=== PATIENT | female | born 1985 | race Caucasian/White ===

== ENCOUNTER 2017-11-08 05:14 | Inpatient (IN) | payer BC ==
[~2017-11-08] VITALS: Ht 154.9 cm; Wt 51.3 kg
[~2017-11-08 05:14] MED LIST: ADERALL PO; AMPH20TA2 PO; CEPH-507 PO; CEPH500C; CITA20TA4; CPR500T PO; FAMO20TA5 PO; HYDR-707 PO; HYOS0.1283 SL; LORAZEPAM PO; OMEP20TA2 PO; ONDA4TAB11 PO; ONDA4TAB8 PO; ONDA8TAB9 PO; OXYC-12; PANT40SU PO; PHENTERAMINE; PNT40TEC PO; PRM25T PO; RNT150T PO; SCR1T1 PO; SPIR1TAB PO; SPIR50TA2 PO; SPIR50TA27; TRAM50TA2 PO
--- OUTSIDE RECORDS SUMMARY | 2017-11-08 05:22 | XMS REPORT | Continuity of Care Document ---
Author Author [facility] Organization [facility] Address Unknown Phone Unavailable Allergies Active Description Code Type Severity Reaction Onset Reported/Identified Relationship to Patient Clinical Status Yes WHOOPING COUGH VACCINE WHOOPING COUGH VACCINE Unknown N/A 10/12/2010 Medications There is no data. Problems Date Dx Coded Attending Type Code Diagnosis Diagnosed By 10/12/2010 Ot 276.8 HYPOPOTASSEMIA 10/12/2010 Ot 305.00 ALCOHOL ABUSE-UNSPEC 10/12/2010 Ot 535.31 ALCOHOLIC GASTRITIS, WITH HEMORRHAGE 10/12/2010 Ot V58.69 OTH MED,LT, CURRENT USE 07/17/2015 COLLEEN LARSON DO Ot 276.8 HYPOPOTASSEMIA 07/17/2015 COLLEEN LARSON DO Ot 574.20 CHOLELITHIASIS NOS 07/17/2015 COLLEEN LARSON DO Ot 787.01 NAUSEA WITH VOMITING 07/17/2015 COLLEEN LARSON DO Ot 787.91 DIARRHEA 07/19/2015 RIVERA SHORT, JOEL Garcia Ot 276.8 07/19/2015 RIVERA SHORT, JOEL T Ot 599.0 07/19/2015 RIVERA SHORT, JOEL T Ot 780.52 07/19/2015 RIVERA SHORT, JOEL T Ot 780.97 07/19/2015 RIVERA SHORT, JOEL T Ot 787.91 07/24/2015 CLOVIS SHORT, DON Waite Ot R10.11 07/24/2015 CLOVIS SHORT, DON Waite Ot R11.2 07/24/2015 CLOVIS SHORT, DON Waite Ot R19.7 08/10/2015 CLOVIS SHORT, DON Waite Ot 783.21 08/10/2015 CLOVIS SHORT, DON Waite Ot 787.01 08/10/2015 CLOVIS SHORT, DON Waite Ot 789.01 03/23/2016 COLLEEN LARSON DO Ot 276.8 HYPOPOTASSEMIA 03/23/2016 COLLEEN LARSON DO Ot 574.20 CHOLELITHIASIS NOS 03/23/2016 COLLEEN LARSON DO Reinier Ot 787.01 NAUSEA WITH VOMITING 03/23/2016 NEO SHULTZ COLLEEN Reinier Ot 787.91 DIARRHEA Procedures There is no data. Results There is no data. Encounters ACCT No. Visit Date/Time Discharge Status Pt. Type Provider Facility Loc./Unit Complaint [id number] 07/24/2015 07:46:00 07/24/2015 11:45:00 DIS Outpatient [facility] [id number] 07/23/2015 05:50:00 07/23/2015 23:59:59 CLS Outpatient DON BRANNON MD [facility] PREOP [id number] 07/20/2015 09:34:00 07/20/2015 23:59:59 CLS Outpatient DON BRANNON MD [facility] CARD [id number] 07/18/2015 19:45:00 07/19/2015 00:31:00 DIS Emergency JOEL STAFFORD MD [facility] ER [id number] 07/16/2015 23:13:00 07/17/2015 02:54:00 DIS Emergency NEO COLLEEN [facility] ER V,D,N [id number] 09/17/2013 15:12:00 09/17/2013 18:36:00 DIS Emergency [id number] 05/10/2013 16:35:00 05/10/2013 18:58:00 DIS Emergency [id number] 10/11/2010 23:54:00 Document Registration
[2017-11-08] MEDS ORDERED: NS IV 1000 ML 1,000 ML IV ONE (05:37)
[2017-11-08] MEDS ORDERED: LACTATED RINGERS 1,000 ML IV ONE ×2 (05:39→09:13)
[2017-11-08] MEDS ORDERED: HYDR25TA4 PO (05:57)
[2017-11-08 06:19] LABS: BASOPHILS % (AUTO) 0 % (0-10); EOSINOPHILS # (AUTO) 0.1 10^3/uL (0.0-0.3); EOSINOPHILS % (AUTO) 2 % (0-10); HEMATOCRIT 38 % (35-52); HEMOGLOBIN 13.4 G/DL (11.5-16.0); LYMPHOCYTES # (AUTO) 2.5 X 10^3 (1.0-4.0); LYMPHOCYTES % (AUTO) 34 % (12-44); MEAN CORPUSCULAR HEMOGLOBIN 33 PG (25-34); MEAN CORPUSCULAR HGB CONC 35 G/DL (32-36); MEAN CORPUSCULAR VOLUME 93 FL (80-99); MEAN PLATELET VOLUME 9.5 FL (7.4-10.4); MONOCYTES # (AUTO) 0.5 X 10^3 (0.0-1.0); MONOCYTES % (AUTO) 7 % (0-12); NEUTROPHILS # (AUTO) 4.2 X 10^3 (1.8-7.8); NEUTROPHILS % (AUTO) 57 % (42-75); PLATELET COUNT 274 10^3/uL (130-400); RED BLOOD COUNT 4.07 10^6/uL (4.35-5.85); RED CELL DISTRIBUTION WIDTH 12.3 % (10.0-14.5); WHITE BLOOD COUNT 7.5 10^3/uL (4.3-11.0)
[2017-11-08 06:21] LABS: CLARITY,URINE CLEAR; COLOR,URINE AMBER; GLUCOSE, URINE (UA) NEGATIVE (NEGATIVE); KETONES,URINE NEGATIVE (NEGATIVE); LEUKOCYTE ESTERASE ,URINE 1+ (NEGATIVE); NITRITE,URINE NEGATIVE (NEGATIVE); PH,URINE 7 (5-9); PROTEIN,URINE 2+ (NEGATIVE); UROBILINOGEN,URINE 1 MG/DL (NORMAL)
[2017-11-08 06:34] LABS: BACTERIA,URINE NEGATIVE /HPF; BILIRUBIN,URINE 1+ (NEGATIVE); RBC,URINE 0-2 /HPF; URIC ACID CRYSTALS,URINE LARGE /LPF; WBC,URINE 0-2 /HPF
[2017-11-08 06:38] LABS: ALANINE AMINOTRANSFERASE 34 U/L (0-55); ALBUMIN 3.6 GM/DL (3.2-4.5); ALKALINE PHOSPHATASE 57 U/L (40-136); BILIRUBIN,TOTAL 0.7 MG/DL (0.1-1.0); BUN/CREATININE RATIO 9; CALCIUM 9.7 MG/DL (8.5-10.1); CARBON DIOXIDE 30 MMOL/L (21-32); CHLORIDE 98 MMOL/L (98-107); CREATININE SERUM 0.68 MG/DL (0.60-1.30); GFR ESTIMATED > 60; GLUCOSE 93 MG/DL (70-105); LIPASE 1100 U/L (8-78); MAGNESIUM 1.3 MG/DL (1.8-2.4); POTASSIUM 3.2 MMOL/L (3.6-5.0); SODIUM 139 MMOL/L (135-145); TOTAL PROTEIN 6.6 GM/DL (6.4-8.2)
--- NOTE | 2017-11-08 07:26 | ED Abdominal Pain ---
General Chief Complaint: Abdominal/GI Problems Stated Complaint: ABD PAIN,STS CHEST PAIN-COUGHING Nursing Triage Note: PT PRESENTS TO ER WITH COMPLAINT OF ABD PAIN. PT STATES THE PAIN STARTS IN HER ABD THEN RADIATES TO HER CHEST, BACK, AND SHOULDER/SHOULDER BLADES. STATES SHE WAS SEEN AT URGENT CARE ON 11/07/17 FOR HER SYMPTOMS. STATES PAIN STARTED THE MORNING OF 11/07/17. Sepsis Screen: No Definite Risk Source of Information: Patient, Old Records Exam Limitations: No Limitations (JOEL STAFFORD MD) History of Present Illness Time Seen By Provider: 05:23 Initial Comments This 32-year-old woman presents to emergency room with pain across the upper abdomen, chest, and shoulders this started about 24 hours ago. She denies any fever. She has chronic diarrhea but denies nausea, vomiting, or constipation. She has had loss of appetite. Her last menstrual period started last week and is lingering on today. She states pain is worse with eating and with sitting up. She has a history of IBS and hypokalemia. Pain in the chest is atypical and not exacerbated by any particular movement, breathing, or activity. (JOEL STAFFORD MD) Allergies and Home Medications Allergies Uncoded Allergies: WHOOPING COUGH VACCINE (Allergy, Unknown, 10/12/10) Home Medications Amphet Asp/Amphet/D-Amphet 20 Mg Tablet, 20 MG PO BID, (Reported) Hydrochlorothiazide 25 Mg Tablet, 25 MG PO, (Reported) Spironolactone 50 Mg Tablet, 50 MG PO DAILY, #30 (Reported) Review of Systems Constitutional: no symptoms reported EENTM: No Symptoms Reported Respiratory: No Symptoms Reported Cardiovascular: No Symptoms Reported Gastrointestinal: See HPI Genitourinary: No Symptoms Reported Musculoskeletal: see HPI Skin: no symptoms reported Psychiatric/Neurological: No Symptoms Reported Endocrine: No Symptoms Reported Hematologic/Lymphatic: No Symptoms Reported (JOEL STAFFORD MD) Past Kcxrwcx-Squpgi-Zrplqx Hx Patient Social History Alcohol Use: Occasionally Uses Recreational Drug Use: No Smoking Status: Current Everyday Smoker Type Used: Cigarettes Recent Foreign Travel: No Contact w/Someone Who Travel: No Recent Infectious Disease Expo: No Recent Hopitalizations: No Physical Abuse: No Sexual Abuse: No (JOEL STAFFORD MD) Alcohol Use: Occasionally Uses (HISTORY OF HEAVY BINGE DRINKING) (COLLEEN COBIAN DO) Immunizations Up To Date Tetanus Booster (TDap): More than 5yrs PED Vaccines UTD: No (JOEL STAFFORD MD) Seasonal Allergies Seasonal Allergies: Yes (JOEL STAFFORD MD) Surgeries History of Surgeries: Yes (INFECTION CUT OUT OF FINGER, EGD, wisdom teeth) (JOEL STAFFORD MD) Respiratory History of Respiratory Disorde: Yes Respiratory Disorders: Pneumonia (JOEL STAFFORD MD) Cardiovascular History of Cardiac Disorders: Yes Cardiac Disorders: Chronic Edema/Swelling (JOEL STAFFORD MD) Neurological History of Neurological Disord: No (JOEL STAFFORD MD) Reproductive System Hx Reproductive Disorders: No (JOEL STAFFORD MD) Gastrointestinal History of Gastrointestinal Di: Yes (GASTRITIS, CHRONIC NAUSEA/VOMITING/ DIARRHEA/ABDOMINAL PAIN) Gastrointestinal Disorders: Chronic Diarrhea, Irritable Bowel (JOEL STAFFORD MD) Musculoskeletal History of Musculoskeletal Dis: No (JOEL STAFFORD MD) Endocrine History of Endocrine Disorders: Yes (recurrent hypokalemia) (JOEL STAFFORD MD) Cancer History of Cancer: No (JOEL STAFFORD MD) Psychosocial History of Psychiatric Problem: Yes Behavioral Health Disorders: ADD/ADHD, Anxiety Suicide Risk Score: 0 (JOEL STAFFORD MD) Integumentary History of Skin or Integumenta: Yes (chronic dry skin) Skin/Integumentary Disorders: Eczema (JOEL STAFFORD MD) Blood Transfusions History of Blood Disorders: No (JOEL STAFFORD MD) Family Medical History Significant Family History: GI Disease (JOEL STAFFORD MD) Physical Exam Vital Signs VS - Last 72 Hours, by Label 11/08/17 11/08/17 05:39 08:25 Temp 99.5 99.5 Pulse 91 Resp 20 B/P (MAP) 114/93 (100) Pulse Ox 100 O2 Delivery Room Air (COLLEEN COBIAN DO) Vital Signs Capillary Refill : Less Than 3 Seconds (JOEL STAFFORD MD) General Appearance: WD/WN, no apparent distress, thin HEENT: PERRL/EOMI, normal ENT inspection, other (oropharynx dry) Neck: normal inspection Respiratory: chest non-tender, lungs clear, normal breath sounds, no respiratory distress, no accessory muscle use Cardiovascular: regular rate, rhythm, no edema, no murmur Gastrointestinal: soft, abnormal bowel sounds (decreased), tenderness (across the upper abdomen, more focused in the epigastrium) Extremities: normal inspection, no pedal edema Back: normal inspection 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, no motor/sensory deficits, alert, oriented x 3, other (tearful, anxious) Skin: normal color, warm/dry (JOEL STAFFORD MD) Progress/Results/Core Measures Results/Orders Lab Results Laboratory Tests Test 11/08/17 05:53 11/08/17 06:10 Range/Units White Blood Count 7.5 4.3-11.0 10^3/uL Red Blood Count 4.07 L 4.35-5.85 10^6/uL Hemoglobin 13.4 11.5-16.0 G/DL Hematocrit 38 35-52 % Mean Corpuscular Volume 93 80-99 FL Mean Corpuscular Hemoglobin 33 25-34 PG Mean Corpuscular Hemoglobin Concent 35 32-36 G/DL Red Cell Distribution Width 12.3 10.0-14.5 % Platelet Count 274 130-400 10^3/uL Mean Platelet Volume 9.5 7.4-10.4 FL Neutrophils (%) (Auto) 57 42-75 % Lymphocytes (%) (Auto) 34 12-44 % Monocytes (%) (Auto) 7 0-12 % Eosinophils (%) (Auto) 2 0-10 % Basophils (%) (Auto) 0 0-10 % Neutrophils # (Auto) 4.2 1.8-7.8 X 10^3 Lymphocytes # (Auto) 2.5 1.0-4.0 X 10^3 Monocytes # (Auto) 0.5 0.0-1.0 X 10^3 Eosinophils # (Auto) 0.1 0.0-0.3 10^3/uL Basophils # (Auto) 0.0 0.0-0.1 10^3/uL Sodium Level 139 135-145 MMOL/L Potassium Level 3.2 L 3.6-5.0 MMOL/L Chloride Level 98 98-107 MMOL/L Carbon Dioxide Level 30 21-32 MMOL/L Anion Gap 11 5-14 MMOL/L Blood Urea Nitrogen 6 L 7-18 MG/DL Creatinine 0.68 0.60-1.30 MG/DL Estimat Glomerular Filtration Rate > 60 BUN/Creatinine Ratio 9 Glucose Level 93 70-105 MG/DL Calcium Level 9.7 8.5-10.1 MG/DL Magnesium Level 1.3 L 1.8-2.4 MG/DL Total Bilirubin 0.7 0.1-1.0 MG/DL Aspartate Amino Transf (AST/SGOT) 45 H 5-34 U/L Alanine Aminotransferase (ALT/SGPT) 34 0-55 U/L Alkaline Phosphatase 57 40-136 U/L Total Protein 6.6 6.4-8.2 GM/DL Albumin 3.6 3.2-4.5 GM/DL Lipase 1100 H 8-78 U/L TSH [place] Testing 1.30 0.35-4.94 UIU/ML Serum Test, Qualitative NEGATIVE NEGATIVE Serum Alcohol < 10 <10 MG/DL Urine Color TINO H Urine Clarity CLEAR Urine pH 7 5-9 Urine Specific [place] 1.020 1.016-1.022 Urine Protein 2+ H NEGATIVE Urine Glucose (UA) NEGATIVE NEGATIVE Urine Ketones NEGATIVE NEGATIVE Urine Nitrite NEGATIVE NEGATIVE Urine Bilirubin 1+ H NEGATIVE Urine Urobilinogen 1 NORMAL MG/DL Urine Leukocyte Esterase 1+ H NEGATIVE Urine RBC (Auto) 1+ H NEGATIVE Urine RBC 0-2 /HPF Urine WBC 0-2 /HPF Urine Squamous Epithelial Cells 2-5 /HPF Urine Crystals PRESENT H /LPF Urine Uric Acid Crystals LARGE H /LPF Urine Bacteria NEGATIVE /HPF Urine Casts NONE /LPF Urine Mucus NEGATIVE /LPF Urine Culture Indicated NO (RENETTA COBIANA Reinier DO) My Orders Orders - RENETTA COBIANA K DO Fentanyl Injection (Sublimaze Injection (11/08/17 08:24) Saline Lock/Iv-Start (11/08/17 09:13) Lactated Ringers (Lr 1000 Ml Iv Solution (11/08/17 09:13) Fentanyl Injection (Sublimaze Injection (11/08/17 09:45) (COLLEEN COBIAN DO) Medications Given in ED Current Medications Medications Dose Ordered Sig/Perez Route Start Time Stop Time Status Last Admin Dose Admin Fentanyl Citrate 50 mcg ONCE ONCE IVP 11/08/17 07:30 11/08/17 07:31 DC 11/08/17 07:32 50 MCG Fentanyl Citrate 50 mcg ONCE ONCE IVP 11/08/17 09:45 11/08/17 09:46 11/08/17 09:42 50 MCG Lactated Ringer's 1,000 ml @ 0 mls/hr Q0M ONCE IV 11/08/17 05:39 11/08/17 05:41 DC 11/08/17 05:49 1,000 MLS/HR Lactated Ringer's 1,000 ml @ 0 mls/hr Q0M ONCE IV 11/08/17 09:13 11/08/17 09:14 DC 11/08/17 09:19 1,000 MLS/HR (COLLEEN COBIAN DO) Vital Signs/I&O Vital Sign - Last 12Hours 11/08/17 11/08/17 05:39 08:25 Temp 99.5 99.5 Pulse 91 Resp 20 B/P (MAP) 114/93 (100) Pulse Ox 100 O2 Delivery Room Air (COLLEEN COBIAN DO) Blood Pressure Mean: 100 Progress Note : Time: 07:24 Progress Note Patient received a liter of lactated Ringer's. Labs revealed mild hypokalemia and elevated lipase. Chest x-ray and abdominal x-ray revealed no acute abnormalities. Workup will be pursued further with gallbladder ultrasound. Pain is being treated with fentanyl. Care of this patient has been turned over to Dr. Cobian at this time. (JOEL STAFFORD MD) Progress Note : Progress Note 0720--ASSUMED CARE FROM DR. STAFFORD, ULTRASOUND PENDING PT HAS HISTORY OF HEAVY ALCOHOL USE/ABUSE, BUT STATES SHE DOES NOT DRINK HEAVY AND ONLY ON RARE OCCASIONS NOW. STATES SHE HAD PART OF A BEER ON Monday11/05/17 (COLLEEN COBIAN DO) Diagnostic Imaging Diagonstic Imaging: Xray Plain Films/CT/US/NM/MRI: chest Comments Chest x-ray viewed by me and report not yet available. No acute abnormalities were appreciated. Diagonstic Imaging: Xray Plain Films/CT/US/NM/MRI: abdomen, pelvis Comments KUB and upright films of the abdomen and pelvis viewed by me. Report not yet available. No acute abnormalities are appreciated. (JOEL STAFFORD MD) Comments GB ULTRASOUND--MINIMAL FLUID AROUND PANCREAS, OTHERWISE NORMAL. PER RADIOLOGIST REPORT @ 0944 Reviewed: Reviewed by Me (COLLEEN COBIAN DO) Departure Communication (Admissions) Progress Notes 0921--SPOKE WITH DR. BRANNON, ACCEPTS PT FOR ADMIT. ORDERS NOTED. (COLLEEN COBIAN DO) Impression Impression: Primary Impression: Pancreatitis Additional Impression: MILD HYPOKALEMIA Disposition: ADMITTED INPATIENT Condition: Stable Admissions Decision to Admit Reason: Admit from ER (General) Decision to Admit/Date: Nov 08, 2017 Time/Decision to Admit Time: 09:50 (COLLEEN COBIAN DO) Departure-Patient Inst. Referrals: DON BRANNON MD (PCP/Family) Primary Care Physician JOEL STAFFORD MD Nov 08, 2017 07:26 COLLEEN COBIAN DO Nov 08, 2017 08:39
[2017-11-08] MEDS ORDERED: fentaNYL INJECTION 100 MCG/2 ML AMP IVP ONE ×2 (07:30→09:45)
[2017-11-08] MEDS ORDERED: fentaNYL INJECTION 100 MCG/2 ML AMP IVP STA ×2 (08:24→09:45)
--- NOTE | 2017-11-08 08:43 | Diagnostic Imaging Report ---
EXAMINATION: Abdomen, flat and upright. INDICATION: Abdominal pain. FINDINGS: There is gas in both the large and small bowel in a nonspecific fashion. This appearance is similar to the CT abdomen/pelvis exam of 07/17/2015. There is no evidence for a bowel obstruction. There is no mass, organomegaly, or pathological calcification evident. There is no sign of a pneumoperitoneum. The osseous structures are intact. IMPRESSION: 1. The bowel gas pattern is nonspecific. There is no acute abnormality identified. 2. Reportedly, a gallbladder ultrasound exam is pending for further evaluation. Dictated by: Dictated on workstation # [id number]
--- NOTE | 2017-11-08 08:43 | Diagnostic Imaging Report ---
EXAMINATION: PA and lateral chest. INDICATION: Chest and abdominal pain There are no prior studies available for comparison. The heart size is within normal limits. The lungs are clear. There is no evidence for pneumonia or for a pleural effusion. There is no sign of failure. There is no pneumothorax identified. The mediastinum is not widened. The osseous structures are intact. IMPRESSION: There is no evidence for an acute cardiopulmonary abnormality. Dictated by: Dictated on workstation # [id number]
--- NOTE | 2017-11-08 09:28 | Diagnostic Imaging Report ---
PROCEDURE: US Gallbladder. TECHNIQUE: Multiple real-time grayscale images were obtained over the right upper quadrant in various projections. INDICATION: Abdominal pain COMPARISON: None FINDINGS: The liver appears unremarkable. There is no biliary dilatation. The common bile duct measures about 3 mm. Doppler imaging demonstrates normal hepatopedal flow in the main portal vein. The gallbladder appears unremarkable. The visualized portions of the pancreas appears unremarkable. There is very minimal trace amount of free fluid seen near the head of the pancreas. The right kidney measures 10.9 cm in length and appears unremarkable. There is no ascites or sonographic Deleon's sign. IMPRESSION: Suspect minimal fluid around the pancreas. This is of uncertain significance and etiology. No additional abnormality is seen. Dictated by: Dictated on workstation # [id number]
[2017-11-08] MEDS ORDERED: PANTOPRAZOLE 40 MG/10 ML (PROTONIX) VIAL IV ONE (10:00)
[2017-11-08] MEDS ORDERED: ONDANSETRON 4 MG/2 ML (SDV) Z0FRAN IV PRN (11:15)
[2017-11-08] MEDS ORDERED: CATHETER FLUSH 10 ML SYR IV PRN ×2 (11:15→13:00)
[2017-11-08] MEDS: morphine INJ 10 MG/ML 1ML (SYR OR VIAL) IV PRN ×5 (11:25→20:39)
[2017-11-08] MEDS ORDERED: D5 1/2 NS W/KCL 20 MEQ/L 1,000 ML IV ONE (11:41)
[2017-11-08 12:00] VITALS: BP 149/94
[2017-11-08] MEDS ORDERED: INFLUENZA TRIvalent 2017-2018 0.5 ML/45 MCG SYR IM ONE (12:00)
[2017-11-08 12:21] LABS: AMPHETAMINE SCREEN, URINE POSITIVE (NEGATIVE); BARBITURATE SCREEN URINE NEGATIVE (NEGATIVE); BENZODIAZEPINES SCREEN URINE NEGATIVE (NEGATIVE); CANNABINOID SCREEN, URINE NEGATIVE (NEGATIVE); COCAINE SCREEN URINE NEGATIVE (NEGATIVE); METHADONE STAT NEGATIVE (NEGATIVE); METHAMPHETAMINE SCREEN URINE S NEGATIVE (NEGATIVE); OPIATE SCREEN URINE NEGATIVE (NEGATIVE); OXYCODONE STAT NEGATIVE (NEGATIVE); PROPOXYPHENE STAT NEGATIVE (NEGATIVE); TRICYCLIC ANTIDEPRESSANTS SCRE NEGATIVE (NEGATIVE)
[2017-11-08] MEDS ORDERED: DEXT30TA12 PO (12:22)
[2017-11-08] MEDS ORDERED: POTA10TA10 PO (12:22)
[2017-11-08] MEDS: D5 1/2 NS W/KCL 20 MEQ/L 1,000 ML IV SCH ×2 (13:28→18:21)
[2017-11-08 15:45] VITALS: BP 125/86
--- NOTE | 2017-11-08 17:28 | History & Physical-Hospitalist ---
HPI History of Present Illness: HPI/Chief Complaint Ms. Goldberg reports yesterday morning after going to the bathroom she coughed several times not particularly hard. With that she noted epigastric abdominal pain. Her pain got progressively worse and aggravated by attempts at eating. She went to work but went home early. She reports a long history of at least several years of only being able to eat small amounts buttock aggravating abdominal pain. She also reports from [place] fat diet and with that she has intermittent diarrhea that she states is oily at times. She has no known past history of pancreatitis or gallstone disease. She has had a past history of binge drinking but over the last year states is only average several beers per week rarely ever drinking more than one at a time. She's had no chills or fever and reports no medication change. Date Seen 11/08/17 Time Seen by Provider: 16:30 Attending Physician Don Brannon MD PCP Don Brannon MD Referring Physician Date of Admission Nov 08, 2017 at 09:50 Home Medications & Allergies Home Medications Reviewed patient Home Medication Reconciliation Form Allergies Allergies Uncoded Allergies WHOOPING COUGH VACCINE ( Allergy, Unknown, 10/12/10) Past Yniaxcr-Cpmrip-Elgyfu Hx Patient Social History Alcohol Use: Occasionally Uses Number of Drinks Today: 0 Alcohol Beverage of Choice: Beer Recreational Drug Use: No Smoking Status: Current Someday Smoker Type Used: Cigarettes Physical Abuse Screen: No Sexual Abuse: No Recent Foreign Travel: No Contact w/other who traveled: No Recent Hopitalizations: No Recent Infectious Disease Expo: No Immunizations Up To Date Tetanus Booster (TDap): More than 5yrs Pediatric: No Seasonal Allergies Seasonal Allergies: Yes Surgeries Yes (INFECTION CUT OUT OF FINGER, EGD, wisdom teeth) Respiratory Yes Currently Using CPAP: No Currently Using BIPAP: No Cardiovascular Yes Chronic Edema/Swelling Neurological No Reproductive System Hx Reproductive Disorders: No Genitourinary No Gastrointestinal Yes (GASTRITIS, CHRONIC NAUSEA/VOMITING/DIARRHEA/ABDOMINAL PAIN) Chronic Diarrhea, Irritable Bowel Musculoskeletal No Endocrine History of Endocrine Disorders: Yes (recurrent hypokalemia) HEENT History of HEENT Disorders: No Cancer No Psychosocial History of Psychiatric Problem: Yes Behavioral Health Disorders: ADD/ADHD, Anxiety Integumentary History of Skin or Integumenta: Yes (chronic dry skin) Skin/Integumentary Disorders: Eczema Blood Transfusions History of Blood Disorders: No Family Medical History Significant Family History: GI Disease Family Hx: Arthritis 19 MOTHER Asthma G8 SISTER Cardiovascular disease 19 FATHER 19 MOTHER Drug abuse G8 SISTER Hypercholesterolemia 19 FATHER 19 MOTHER Hypertension 19 FATHER 19 MOTHER Kidney disease 19 FATHER 19 MOTHER Myocardial infarction 19 MOTHER Neoplasm 19 FATHER (LEUKEMIA) Osteoporosis 19 MOTHER Psychosocial problem G8 SISTER Review of Systems Constitutional: No chills, No diaphoresis, No dizziness, No fever, No malaise, No weakness, No weight gain, No weight loss Respiratory: cough Cardiovascular: chest pain (Sided precordial in nature somewhat pleuritic), No edema, No Hx of Intervention, No palpitations, No syncope, No vascular heart diseas, No other Gastrointestinal: abdominal pain (RUQ), diarrhea, heartburn, nausea, vomiting, other (As for hematemesis melena or hematochezia) Physical Exam Physical Exam Vital Signs Vital Sign - Last 12Hours 11/08/17 05:39 Temp 99.5 Pulse 91 Resp 20 B/P (MAP) 114/93 (100) Pulse Ox 100 O2 Delivery Room Air Capillary Refill : Less Than 3 Seconds General Appearance: Anxious, Mild Distress HEENT: PERRL/EOMI, Normal ENT Inspection, Pharynx Normal Neck: Full Range of Motion, Normal Inspection, Non Tender, Supple, Carotid Bruit Respiratory: Chest Non Tender, Lungs Clear, Normal Breath Sounds, No Accessory Muscle Use, No Respiratory Distress Cardiovascular: Regular Rate, Rhythm, No Edema, No Gallop, No JVD, No Murmur, Normal Peripheral Pulses Gastrointestinal: Normal Bowel Sounds, No Organomegaly, Soft, Guarding, Other ( Significant epigastric right upper and left upper quadrant pain to palpation with guarding) Extremity: Normal Capillary Refill, Normal Inspection, Normal Range of Motion, Non Tender, No Calf Tenderness, No Pedal Edema Neurologic/Psychiatric: Alert, Oriented x3 Skin: Warm/Dry, Pallor Results Results/Procedures Lab Laboratory Tests 11/09/17 05:40 Assessment/Plan Admission Diagnosis 1. This is the patient's first documented attack of pancreatitis with unremarkable abdominal sonogram. Her history suggests the possibility of underlying chronic pancreatitis considering abdominal pain postprandially and history suggesting the possibility of stearrhea. Will need further workup and did recommend as an outpatient GI referral for consideration for further imaging. For now IV fluids bowel rest and parenteral pain medication for pain control. We'll repeat CBC CMP and lipase levels in the morning.'s line 2. History of ADD we'll be holding her generic Adderall. 3. History of fluid retention for which the patient is been on diuretic therapy long-standing. Doubt that her spironolactone her hydrochlorothiazide or contributing to pancreatitis but cannot rule this out for certain. We will be holding these medications as well. Copy Copies To 2: DON BRANNON MD Clinical Quality Measures DVT/VTE Risk/Contraindication: Risk Factor Score Per Nursin RFS Level Per Nursing on Admit: 1=Low/No VTE PPX DON BRANNON MD Nov 08, 2017 17:27
[2017-11-08 19:40] VITALS: BP 111/72
[2017-11-08] MEDS: KETOROLAC 30 MG/ML VIAL IVP PRN (23:41)
[2017-11-09] VITALS: BP 130/87
[2017-11-09] MEDS: D5 1/2 NS W/KCL 20 MEQ/L 1,000 ML IV SCH (01:04)
[2017-11-09 04:00] VITALS: BP 120/85
[2017-11-09] MEDS: morphine INJ 10 MG/ML 1ML (SYR OR VIAL) IV PRN ×3 (04:16→20:42)
[2017-11-09 06:55] LABS: BASOPHILS % (AUTO) 0 % (0-10); EOSINOPHILS # (AUTO) 0.2 10^3/uL (0.0-0.3); EOSINOPHILS % (AUTO) 2 % (0-10); HEMATOCRIT 36 % (35-52); HEMOGLOBIN 12.2 G/DL (11.5-16.0); LYMPHOCYTES # (AUTO) 1.5 X 10^3 (1.0-4.0); LYMPHOCYTES % (AUTO) 18 % (12-44); MEAN CORPUSCULAR HEMOGLOBIN 32 PG (25-34); MEAN CORPUSCULAR HGB CONC 34 G/DL (32-36); MEAN CORPUSCULAR VOLUME 96 FL (80-99); MEAN PLATELET VOLUME 10.3 FL (7.4-10.4); MONOCYTES # (AUTO) 0.5 X 10^3 (0.0-1.0); MONOCYTES % (AUTO) 6 % (0-12); NEUTROPHILS # (AUTO) 6.4 X 10^3 (1.8-7.8); NEUTROPHILS % (AUTO) 74 % (42-75); PLATELET COUNT 226 10^3/uL (130-400); RED BLOOD COUNT 3.76 10^6/uL (4.35-5.85); RED CELL DISTRIBUTION WIDTH 12.4 % (10.0-14.5); WHITE BLOOD COUNT 8.6 10^3/uL (4.3-11.0)
[2017-11-09 07:16] LABS: ALANINE AMINOTRANSFERASE 23 U/L (0-55); ALKALINE PHOSPHATASE 50 U/L (40-136); BILIRUBIN,TOTAL 0.7 MG/DL (0.1-1.0); BUN/CREATININE RATIO 5; CALCIUM 8.4 MG/DL (8.5-10.1); CARBON DIOXIDE 25 MMOL/L (21-32); CHLORIDE 102 MMOL/L (98-107); CREATININE SERUM 0.61 MG/DL (0.60-1.30); GFR ESTIMATED > 60; GLUCOSE 105 MG/DL (70-105); POTASSIUM 3.9 MMOL/L (3.6-5.0); SODIUM 137 MMOL/L (135-145); TOTAL PROTEIN 5.5 GM/DL (6.4-8.2)
[2017-11-09 08:00] VITALS: BP 140/86
[2017-11-09 08:02] LABS: LIPASE 1408 U/L (8-78)
[2017-11-09] MEDS: KETOROLAC 30 MG/ML VIAL IVP PRN (08:03)
--- NOTE | 2017-11-09 08:18 | Progress Note-Hospitalist ---
Subjective HPI/CC On Admission Date Seen by Provider: Nov 09, 2017 Time Seen by Provider: 07:45 Ms. Goldberg reports yesterday morning after going to the bathroom she coughed several times not particularly hard. With that she noted epigastric abdominal pain. Her pain got progressively worse and aggravated by attempts at eating. She went to work but went home early. She reports a long history of at least several years of only being able to eat small amounts buttock aggravating abdominal pain. She also reports from [place] fat diet and with that she has intermittent diarrhea that she states is oily at times. She has no known past history of pancreatitis or gallstone disease. She has had a past history of binge drinking but over the last year states is only average several beers per week rarely ever drinking more than one at a time. She's had no chills or fever and reports no medication change. Subjective/Events-last exam patient reports continued epigastric pain but under better control. She's having some left sided pleuritic chest pain without cough as well. She denies nausea but reports she is not hungry. She denies chills or fever. I was contacted by the nurse last night that she was concerned about respiratory depression and overmedication as the patient was requesting morphine every 2 hours. We initiated ketorolac patient sleeping this morning noting some epigastric pain when I woke her up. She had been able to go for hours without morphine injection that point. Objective Exam Vital Signs Vital Sign - Last 12Hours 11/08/17 05:39 Temp 99.5 Pulse 91 Resp 20 B/P (MAP) 114/93 (100) Pulse Ox 100 O2 Delivery Room Air Capillary Refill : Less Than 3 Seconds General Appearance: WD/WN, Mild Distress Respiratory: Chest Non Tender, Lungs Clear, Normal Breath Sounds, No Accessory Muscle Use, No Respiratory Distress Cardiovascular: Regular Rate, Rhythm, No Edema, No Gallop, No JVD, No Murmur, Normal Peripheral Pulses Gastrointestinal: Normal Bowel Sounds, No Organomegaly, No Pulsatile Mass, Soft , Other (epigastric pain with guarding no rebound noted.) Results/Procedures Lab Assessment/Plan Assessment and Plan Assess & Plan/Chief Complaint 1. Acute pancreatitis some improvement in symptoms. Lipase level pending suspect it will be lower. CBC remains normal and mildly elevated ALTs returning to normal. Will advance to clear liquid diet and DC IV fluids considering low BUN/creatinine ratio. DON BRANNON MD Nov 09, 2017 08:18
[2017-11-09] MEDS: PANTOPRAZOLE 40 MG/10 ML (PROTONIX) VIAL IV SCH (08:34)
[2017-11-09 12:53] VITALS: BP 138/85
[2017-11-09] MEDS: KETOROLAC 30 MG/ML VIAL IVP SCH (15:34)
[2017-11-09 15:45] VITALS: BP 129/81
[2017-11-09 19:55] VITALS: BP 102/71
[2017-11-10] VITALS: BP 110/77
[2017-11-10] MEDS: KETOROLAC 30 MG/ML VIAL IVP SCH ×3 (00:08→16:43)
[2017-11-10] MEDS: morphine INJ 10 MG/ML 1ML (SYR OR VIAL) IV PRN ×3 (03:49→20:32)
[2017-11-10 08:31] VITALS: BP 134/76
[2017-11-10] MEDS ORDERED: NS 100 ML (IVPB) BAG IV ONE (09:15)
[2017-11-10] MEDS: PANTOPRAZOLE 40 MG/10 ML (PROTONIX) VIAL IV SCH (09:15)
[2017-11-10] MEDS ORDERED: IOHEXOL 350 MG/ML 100 ML (OMNIPAQUE 350) VIAL IV ONE (09:15)
--- NOTE | 2017-11-10 12:58 | Diagnostic Imaging Report ---
PROCEDURE: CT abdomen with contrast only. TECHNIQUE: Multiple contiguous axial images were obtained through the abdomen after the administration of intravenous contrast. DATE: 11/10/2017. INDICATION: 32-year-old female, acute pancreatitis. COMPARISON: Right upper quadrant ultrasound 11/08/2017. CT abdomen and pelvis 07/17/2015. FINDINGS: There is a small right and a small left pleural effusion with adjacent homogeneously enhancing consolidation in the dependent aspects of the right and left lower lobes compatible with adjacent compressive atelectasis. The additional visualized portions of the lung bases are clear. The heart is not enlarged. There is no pericardial effusion. There is heterogeneous attenuation of the liver which is geographic in distribution. This most likely is a perfusion related effect. The main, right, and left portal veins are patent. The gallbladder is unremarkable. There is no identified intrahepatic or extrahepatic bile duct dilation. There is obscuration of the normal pancreatic parenchyma with peripancreatic fluid compatible with provided history of acute pancreatitis. There is no evidence of pancreatic necrosis. There is no focal drainable well marginated fluid collection. The spleen is not enlarged. The adrenal glands are unremarkable. Unremarkable appearance of the renal parenchyma. The urinary collecting systems are not distended. There is no identified renal stone. There is a small amount of ascites. There is a retroaortic left renal vein. There are atherosclerotic calcifications. There is no identified abnormally enlarged lymph node in the abdomen, which meets CT size criteria for adenopathy. There is no identified acute bony abnormality. IMPRESSION: 1. Findings compatible with acute pancreatitis. No evidence of pancreatic necrosis or focal well marginated fluid collection. 2. No CT apparent gallstone. No biliary ductal dilation. 3. Geographic areas of heterogeneous attenuation of the liver, which may potentially reflect a perfusion related phenomenon. 4. Small bilateral pleural effusions with adjacent compressive atelectasis. 5. Atherosclerotic calcifications noted. Dictated by: Dictated on workstation # [id number]
--- NOTE | 2017-11-10 14:45 | Progress Note-Hospitalist ---
Standard Progress Note HPI/CC on Admission Ms. Goldberg reports yesterday morning after going to the bathroom she coughed several times not particularly hard. With that she noted epigastric abdominal pain. Her pain got progressively worse and aggravated by attempts at eating. She went to work but went home early. She reports a long history of at least several years of only being able to eat small amounts buttock aggravating abdominal pain. She also reports from [place] fat diet and with that she has intermittent diarrhea that she states is oily at times. She has no known past history of pancreatitis or gallstone disease. She has had a past history of binge drinking but over the last year states is only average several beers per week rarely ever drinking more than one at a time. She's had no chills or fever and reports no medication change. Progress Notes/Assess & Plan Date Seen 11/10/17 Time Seen by Provider: 12:30 Assess & Plan/Chief Complaint 1. Acute pancreatitis some improvement in symptoms. Lipase level pending suspect it will be lower. CBC remains normal and mildly elevated ALTs returning to normal. Will advance to clear liquid diet and DC IV fluids considering low BUN/creatinine ratio. Labs Laboratory Tests 11/09/17 05:40 Short Stay Final Diagnosis Patient was sleeping upon my arrival. It is been 5 or 6 hours since her last morphine injection. If she is still getting ketorolac IV every 8. She reports probably epigastric pain and some left chest wall discomfort without cough chills or fever. She reports feeling slightly hungry this morning and denies nausea. Physical examination reveals a white female who appears to be in less distress than yesterday. Her chest reveals a few fine rales in the left base no wheezes rhonchi or rubs are appreciated. CV reveals a regular rate and rhythm without murmur S3 or S4. Abdomen is soft supple mild distention with epigastric right and left upper quadrant discomfort to palpation with mild guarding although less so than yesterday. No evidence for mass or organomegaly is noted. CT evaluation revealed findings compatible with acute pancreatitis with a small amount of non-localizable ascites. There is no evidence suggest pancreatic necrosis or pseudocyst formation. No biliary tract pathology was is identified. The common duct is not dilated. First episode of acute pancreatitis idiopathic we'll advanced to low fat diet consider discharge over the weekend if progress continues. We'll want to see her back in the office next Monday or and we'll discuss GI referral at that time. In the past patient has had heavier alcohol consumption but for over a year she reports drinking that is well within moderation. For now was advised that she abstain from all alcohol. Today lipase down significantly to the 600 range from 1400 yesterday. We'll repeat an a.m. During ketorolac will check a CMP level as well Labs Laboratory Tests 11/10/17 07:00: Lipase 613H DON BRANNON MD Nov 10, 2017 14:45
[2017-11-10 16:20] VITALS: BP 121/70
[2017-11-10] MEDS: NS IV 1000 ML 1,000 ML IV SCH (22:04)
[2017-11-10 23:50] VITALS: BP 108/59
[2017-11-11] MEDS: KETOROLAC 30 MG/ML VIAL IVP SCH ×3 (00:17→16:14)
[2017-11-11] MEDS: morphine INJ 10 MG/ML 1ML (SYR OR VIAL) IV PRN ×4 (00:51→21:55)
[2017-11-11 05:50] LABS: ALANINE AMINOTRANSFERASE 17 U/L (0-55); ALBUMIN 2.5 GM/DL (3.2-4.5); ALKALINE PHOSPHATASE 74 U/L (40-136); BILIRUBIN,TOTAL 0.4 MG/DL (0.1-1.0); BUN/CREATININE RATIO 13; CALCIUM 8.1 MG/DL (8.5-10.1); CARBON DIOXIDE 24 MMOL/L (21-32); CHLORIDE 105 MMOL/L (98-107); CREATININE SERUM 0.55 MG/DL (0.60-1.30); GFR ESTIMATED > 60; GLUCOSE 105 MG/DL (70-105); LIPASE 392 U/L (8-78); POTASSIUM 3.2 MMOL/L (3.6-5.0); SODIUM 138 MMOL/L (135-145); TOTAL PROTEIN 5.1 GM/DL (6.4-8.2)
[2017-11-11 08:00] VITALS: BP 101/69
[2017-11-11] MEDS: NS IV 1000 ML 1,000 ML IV SCH ×3 (08:04→19:58)
[2017-11-11] MEDS: PANTOPRAZOLE 40 MG/10 ML (PROTONIX) VIAL IV SCH (08:04)
--- NOTE | 2017-11-11 10:24 | Progress Note-Hospitalist ---
Subjective HPI/CC On Admission Date Seen by Provider: Nov 11, 2017 Time Seen by Provider: 09:55 Subjective/Events-last exam Reports doing slightly better than yesterday. Unable to tolerate much food. Had ordered a regular diet yesterday and today and reports it worsens her pain. Did have a BM yesterday that she described as "explosive." Objective Exam Vital Signs Vital Sign - Last 12Hours 11/08/17 05:39 Temp 99.5 Pulse 91 Resp 20 B/P (MAP) 114/93 (100) Pulse Ox 100 O2 Delivery Room Air Capillary Refill : Less Than 3 Seconds General Appearance: No Apparent Distress, WD/WN Respiratory: Lungs Clear, No Accessory Muscle Use, No Respiratory Distress Cardiovascular: Regular Rate, Rhythm, No Murmur Gastrointestinal: Normal Bowel Sounds, Soft, No Distended, No Rebound, Tenderness (mild tenderness diffusely but more exquisite over epigastrium) Neurologic/Psychiatric: Alert, Oriented x3 Results/Procedures Lab Laboratory Tests 11/11/17 05:05 Assessment/Plan Assessment and Plan Assess & Plan/Chief Complaint Pancreatitis Diagnosis/Problems Diagnosis/Problems (1) Pancreatitis Status: Acute Assessment & Plan: CT reveals acute pancreatitis without necrosis or abscess No gallstones noted on CT as well Will continue with IV pain control and antiemetics IV fluids Advised her to go more slowly with diet Qualifiers: Qualified Codes: K85.00 - Idiopathic acute pancreatitis without necrosis or infection (2) Diarrhea Status: Acute Assessment & Plan: penitentiary Continue to monitor Qualifiers: Qualified Codes: R19.7 - Diarrhea, unspecified (3) Hypokalemia Status: Acute Assessment & Plan: Replacement ordered CESAR RENDON MD Nov 11, 2017 10:24 am
[2017-11-11] MEDS: POTASSIUM CL 10MEQ/50ML IVPB 50 ML IV SCH ×2 (11:15→12:11)
[2017-11-11 16:03] VITALS: BP 104/61
[2017-11-11] MEDS ORDERED: ACETAMINOPHEN 500 MG TAB (TYLENOL) PO PRN (20:00)
[2017-11-12] MEDS: KETOROLAC 30 MG/ML VIAL IVP SCH ×3 (00:19→16:31)
[2017-11-12 00:27] VITALS: BP 99/55
[2017-11-12 05:38] LABS: BASOPHILS % (AUTO) 0 % (0-10); EOSINOPHILS # (AUTO) 0.3 10^3/uL (0.0-0.3); EOSINOPHILS % (AUTO) 4 % (0-10); HEMATOCRIT 29 % (35-52); HEMOGLOBIN 9.4 G/DL (11.5-16.0); LYMPHOCYTES % (AUTO) 30 % (12-44); MEAN CORPUSCULAR HEMOGLOBIN 32 PG (25-34); MEAN CORPUSCULAR HGB CONC 33 G/DL (32-36); MEAN CORPUSCULAR VOLUME 97 FL (80-99); MEAN PLATELET VOLUME 9.5 FL (7.4-10.4); MONOCYTES # (AUTO) 0.7 X 10^3 (0.0-1.0); MONOCYTES % (AUTO) 10 % (0-12); NEUTROPHILS # (AUTO) 3.9 X 10^3 (1.8-7.8); NEUTROPHILS % (AUTO) 56 % (42-75); PLATELET COUNT 242 10^3/uL (130-400); RED BLOOD COUNT 2.94 10^6/uL (4.35-5.85); RED CELL DISTRIBUTION WIDTH 12.3 % (10.0-14.5); WHITE BLOOD COUNT 6.9 10^3/uL (4.3-11.0)
[2017-11-12] MEDS: NS IV 1000 ML 1,000 ML IV SCH ×2 (06:04→23:37)
[2017-11-12 06:14] LABS: BUN/CREATININE RATIO 12; CALCIUM 7.8 MG/DL (8.5-10.1); CARBON DIOXIDE 21 MMOL/L (21-32); CHLORIDE 109 MMOL/L (98-107); CREATININE SERUM 0.51 MG/DL (0.60-1.30); GFR ESTIMATED > 60; GLUCOSE 110 MG/DL (70-105); LIPASE 247 U/L (8-78); POTASSIUM 3.2 MMOL/L (3.6-5.0); SODIUM 141 MMOL/L (135-145)
[2017-11-12 08:46] VITALS: BP 111/70
[2017-11-12] MEDS: PANTOPRAZOLE 40 MG/10 ML (PROTONIX) VIAL IV SCH (09:05)
--- NOTE | 2017-11-12 11:00 | Progress Note-Hospitalist ---
Subjective HPI/CC On Admission Date Seen by Provider: Nov 12, 2017 Time Seen by Provider: 10:40 Subjective/Events-last exam Reports feeling the same as yesterday. Was able to eat more though per I/Os. Pain persistent. Objective Exam Vital Signs Vital Sign - Last 12Hours 11/08/17 05:39 Temp 99.5 Pulse 91 Resp 20 B/P (MAP) 114/93 (100) Pulse Ox 100 O2 Delivery Room Air Capillary Refill : Less Than 3 Seconds General Appearance: No Apparent Distress, WD/WN Respiratory: Lungs Clear, No Respiratory Distress Cardiovascular: Regular Rate, Rhythm, No Murmur Gastrointestinal: Normal Bowel Sounds, Soft, No Distended, Tenderness (mild diffuse tenderness) Extremity: Non Tender, No Calf Tenderness Neurologic/Psychiatric: Alert, Oriented x3 Results/Procedures Lab Laboratory Tests 11/12/17 05:17 Assessment/Plan Assessment and Plan Assess & Plan/Chief Complaint Pancreatitis Diagnosis/Problems Diagnosis/Problems (1) Pancreatitis Status: Acute Assessment & Plan: CT reveals acute pancreatitis without necrosis or abscess No gallstones noted on CT as well Will continue with IV pain control and antiemetics Added oral pain meds as well to attempt transition for potential home regimen IV fluids- will DC with increased oral intake today Advised her to go more slowly with diet Qualifiers: Qualified Codes: K85.00 - Idiopathic acute pancreatitis without necrosis or infection (2) Hypokalemia Status: Acute Assessment & Plan: Replacement ordered again Will check mag (3) Normocytic anemia Assessment & Plan: Likely dilutional Will trend Will check iron levels, if low will replace (4) Diarrhea Status: Acute Assessment & Plan: skilled nursing Continue to monitor Qualifiers: Qualified Codes: R19.7 - Diarrhea, unspecified CESAR RENDON MD Nov 12, 2017 11:00
[2017-11-12] MEDS: POTASSIUM CL 10MEQ/50ML IVPB 50 ML IV SCH ×2 (11:43→16:31)
[2017-11-12] MEDS: HYDROcodone/APAP 5 MG/325 MG (LORTAB) TAB PO PRN ×2 (12:23→20:31)
[2017-11-12] MEDS: MAGNESIUM 1 GM/100 ML IVPB 100 ML IV SCH ×4 (12:23→16:31)
[2017-11-12] MEDS ORDERED: hydrOXYzine (ATARAX) 10 MG TAB PO PRN (13:45)
[2017-11-12 16:37] VITALS: BP 131/71
[2017-11-13] VITALS: BP 114/65
[2017-11-13] MEDS: KETOROLAC 30 MG/ML VIAL IVP SCH ×2 (00:26→09:00)
[2017-11-13 01:55] VITALS: BP 118/72
[2017-11-13 06:49] LABS: BASOPHILS % (AUTO) 0 % (0-10); EOSINOPHILS # (AUTO) 0.3 10^3/uL (0.0-0.3); EOSINOPHILS % (AUTO) 3 % (0-10); HEMATOCRIT 30 % (35-52); HEMOGLOBIN 10.2 G/DL (11.5-16.0); LYMPHOCYTES % (AUTO) 24 % (12-44); MEAN CORPUSCULAR HEMOGLOBIN 32 PG (25-34); MEAN CORPUSCULAR HGB CONC 34 G/DL (32-36); MEAN CORPUSCULAR VOLUME 94 FL (80-99); MEAN PLATELET VOLUME 9.8 FL (7.4-10.4); MONOCYTES # (AUTO) 0.6 X 10^3 (0.0-1.0); MONOCYTES % (AUTO) 8 % (0-12); NEUTROPHILS # (AUTO) 5.4 X 10^3 (1.8-7.8); NEUTROPHILS % (AUTO) 65 % (42-75); PLATELET COUNT 351 10^3/uL (130-400); RED BLOOD COUNT 3.21 10^6/uL (4.35-5.85); RED CELL DISTRIBUTION WIDTH 12.1 % (10.0-14.5); WHITE BLOOD COUNT 8.4 10^3/uL (4.3-11.0)
[2017-11-13 07:17] LABS: BUN/CREATININE RATIO 6; CALCIUM 8.4 MG/DL (8.5-10.1); CARBON DIOXIDE 22 MMOL/L (21-32); CHLORIDE 109 MMOL/L (98-107); CREATININE SERUM 0.54 MG/DL (0.60-1.30); GFR ESTIMATED > 60; GLUCOSE 83 MG/DL (70-105); LIPASE 231 U/L (8-78); MAGNESIUM 1.8 MG/DL (1.8-2.4); POTASSIUM 3.1 MMOL/L (3.6-5.0); SODIUM 142 MMOL/L (135-145)
[2017-11-13 07:42] VITALS: BP 117/76
--- NOTE | 2017-11-13 08:20 | Diagnostic Imaging Report ---
INDICATION: Cough PA and lateral views of the chest are obtained. Comparison is made to study of 11/08/2017. There has been development of bilateral parahilar and basilar atelectasis. There is blunting of both costophrenic sulci. There is no evidence of pneumothorax or focal consolidation. IMPRESSION: Developing parahilar atelectasis and small bilateral pleural effusions. Dictated by: Dictated on workstation # [id number]
[2017-11-13] MEDS: PANTOPRAZOLE 40 MG/10 ML (PROTONIX) VIAL IV SCH (10:13)
[2017-11-13] MEDS ORDERED: TRAM50TA2 PO (10:30)
--- NOTE | 2017-11-14 10:36 | Discharge Summary-Hospitalist ---
Diagnosis/Chief Complaint Date of Admission Nov 08, 2017 at 09:50 Date of Discharge Nov 13, 2017 at 10:40 Discharge Date: Nov 13, 2017 Admission Diagnosis 1. This is the patient's first documented attack of pancreatitis with unremarkable abdominal sonogram. Her history suggests the possibility of underlying chronic pancreatitis considering abdominal pain postprandially and history suggesting the possibility of stearrhea. Will need further workup and did recommend as an outpatient GI referral for consideration for further imaging. For now IV fluids bowel rest and parenteral pain medication for pain control. We'll repeat CBC CMP and lipase levels in the morning.'s line 2. History of ADD we'll be holding her generic Adderall. 3. History of fluid retention for which the patient is been on diuretic therapy long-standing. Doubt that her spironolactone her hydrochlorothiazide or contributing to pancreatitis but cannot rule this out for certain. We will be holding these medications as well. Discharge Diagnosis 1. Acute pancreatitis some improvement in symptoms. Lipase level pending suspect it will be lower. CBC remains normal and mildly elevated ALTs returning to normal. Will advance to clear liquid diet and DC IV fluids considering low BUN/creatinine ratio. 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 Goldberg presented to the emergency room with a several day history of severe epigastric right and left upper quadrant abdominal pain with radiation up into the left chest wall. She was noted to have a lipase level in the 1200 range. Abdominal sonography done emergency room was unremarkable. Subsequent CT scanning of the pancreas revealed some mild inflammatory change without evidence for necrosis or pseudocyst formation. She had mild ALt elevation a little over 40 of the remainder of her liver function studies were normal. Calcium levels and CBC were normal as well. She was admitted to the floor on nothing by mouth status with parenteral pain medication being required she had slow improvement in symptoms and by discharge was pain free nearly tolerating a solid diet. Her lipase level was down to the 240 range and liver function tests remain normal. Mild anemia felt to be delusional and related to inflammation was present. Cannot rule out mild iron deficiency although MCV is normal. She does report chronic postprandial abdominal pain and a history suggesting the possibility of steatorrhea from her description. As there is no evidence for gallstone disease and she denies any significant alcohol consumption I will be seeing her back on and we will be scheduling her for GI consultation for consideration for future ERCP. I will be seeing her back in the office this for early follow-up to monitor her progress. Discharge hemoglobin was 10.4. She did have hypomagnesemia and hypokalemia that required IV replacement. Chronic sensations of fluid retention and puffiness of the extremities the patient had been on spironolactone and hydrochlorothiazide for many years. She was advised to discontinue hydrochlorothiazide at the small chance that it could aggravate pancreatitis she can continue when necessary spironolactone. Discharge Home Medications: Active Scripts Active Tramadol HCl 50 Mg Tablet 50 Mg PO Q4H Reported Potassium Chloride 10 Meq Tablet.er 10 Meq PO DAILY Amphetamine Salts 30 mg Tablet (Dextroamphetamine/Amphetamine) 30 Mg Tablet 30 Mg PO BID Spironolactone 50 Mg Tablet 50 Mg PO DAILY Instructions to patient/family Please see electronic discharge instructions given to patient. Clinical Quality Measures DVT/VTE Risk/Contraindication: Risk Factor Score Per Nursin RFS Level Per Nursing on Admit: 1=Low/No VTE PPX Problem Qualifiers (1) Pancreatitis: Chronicity: acute Pancreatitis type: idiopathic Acute pancreatitis complication: no infection or necrosis Qualified Codes: K85.00 - Idiopathic acute pancreatitis without necrosis or infection (2) Diarrhea: Diarrhea type: unspecified type Qualified Codes: R19.7 - Diarrhea, unspecified DON BRANNON MD Nov 14, 2017 10:36
== END 2017-11-13 10:40 | disposition home or self-care (01) | DRG 440 ==
LOC: EDUNIT# 05:14 → ER 05:18 → 4TH 09:50
PROVIDERS: ADMIT Internal Medicine; ATTEND Internal Medicine
DX: K85.00 Idiopathic acute pancreatitis without necrosis or infection (principal); E87.6 Hypokalemia; R19.7 Diarrhea, unspecified; D64.9 Anemia, unspecified; F41.9 Anxiety disorder, unspecified; F90.9 Attention-deficit hyperactivity disorder, unspecified type; L30.9 Dermatitis, unspecified; R60.9 Edema, unspecified; F17.210 Nicotine dependence, cigarettes, uncomplicated
CPT/HCPCS: 36415; 71046; 74019; 74160; 76705; 80048; 80053; 80306; 80320; 81000; 82728; 83540; 83690; 83735; 84443; 84703; 85025; 96361; 96374; 96375; 96376

== ENCOUNTER → 2018-03-13 | Outpatient (CLI) | payer BC ==
[~2018-03-13] MED LIST changes: +DEXT30TA12 PO; +HYDR25TA4 PO; +POTA10TA10 PO
[2018-03-13 11:15] LABS: HEMOGLOBIN 13.5 G/DL (11.5-16.0); MEAN PLATELET VOLUME 9.1 FL (7.4-10.4); RED BLOOD COUNT 4.39 10^6/uL (4.35-5.85); RED CELL DISTRIBUTION WIDTH 16.3 % (10.0-14.5); WHITE BLOOD COUNT 7.6 10^3/uL (4.3-11.0)
[2018-03-13 11:41] LABS: ALANINE AMINOTRANSFERASE 9 U/L (0-55); ALBUMIN 4.4 GM/DL (3.2-4.5); ALKALINE PHOSPHATASE 41 U/L (40-136); BILIRUBIN,TOTAL 0.3 MG/DL (0.1-1.0); BUN/CREATININE RATIO 9; CALCIUM 9.9 MG/DL (8.5-10.1); CARBON DIOXIDE 29 MMOL/L (21-32); CHLORIDE 97 MMOL/L (98-107); CREATININE SERUM 0.74 MG/DL (0.60-1.30); GFR ESTIMATED > 60; GLUCOSE 96 MG/DL (70-105); LIPASE 37 U/L (8-78); POTASSIUM 4.3 MMOL/L (3.6-5.0); SODIUM 137 MMOL/L (135-145); TOTAL PROTEIN 7.5 GM/DL (6.4-8.2)
== END ==
LOC: LAB 10:58
PROVIDERS: ATTEND Internal Medicine
DX: R10.13 Epigastric pain (principal)
CPT/HCPCS: 36415; 80053; 83690; 85027; 86141

== ENCOUNTER 2018-08-19 16:55 | Outpatient (RCR) | payer BC ==
[~2018-08-19 16:55] MED LIST changes: -SPIR50TA2 PO; +SPIR50TA4 PO
== END 2018-11-17 | disposition home or self-care (01) ==
LOC: LAB 16:55 → EDSTATUS 17:01
PROVIDERS: ATTEND Hospitalist
DX: K52.9 Noninfective gastroenteritis and colitis, unspecified (principal)
CPT/HCPCS: 36415; 83520; 87015; 87045; 87046; 87324; 87328; 87329; 87449; 87493; 87899

== ENCOUNTER 2018-11-28 18:08 | Emergency (ER) | payer BC ==
[~2018-11-28] VITALS: Ht 154.9 cm; Wt 46.3 kg
--- OUTSIDE RECORDS SUMMARY | 2018-11-28 18:13 | XMS REPORT | Encounter Summary ---
Author Author [facility] Organization [facility] Address Unknown Phone Unavailable Care Team Providers Care Orientation & Mobility Specialist Name Role Phone Armando Eldridge MD PCP Reason for Visit * Reason Comments Diarrhea Encounter Details Care Team Description Date Type Department Joaquin Ng MD [address] [place] [address] Diarrhea 09/03/2018 Telephone [facility] Level [address] [place] [address] Social History Date Tobacco Use Types Packs/Day Years Used Current Every Day Smoker Smokeless Tobacco: Never Used Alcohol Use Drinks/Week oz/Week Comments Yes Sex Assigned at Date Recorded Not on file Industry Job Start Date Occupation Not on file Not on file Not on file Travel End Travel History Travel Start No recent travel history available. as of this encounter Miscellaneous Notes * Telephone Encounter - Nilsa Jeffers RN - 09/03/2018 10:20 AM HOSPITAL NURSE LIAISON Called and informed the pt that she can go online to [employer] website to get the saving card. ITAL NURSE LIAISON * Telephone Encounter - Joaquin Ng MD - 09/03/2018 10:07 AM HOSPITAL NURSE LIAISON Called patient and explained results of testing to date all of which have been normal. This leaves us with the possibility of small intestinal bacterial overgrowth or irritable bowel syndrome, diarrhea predominant. I advised empiric treatment with rifaximin for 2-week period of time. I went over this medication and she agreed to trying it. If no response, then we will concentrate on treatment of IBS related symptoms. Joaquin Ng MD Gastroenterology Staff ITAL NURSE LIAISON in this encounter Plan of Treatment Not on fileas of this encounter Visit Diagnoses Not on filein this encounter
--- OUTSIDE RECORDS SUMMARY | 2018-11-28 18:13 | XMS REPORT | Encounter Summary ---
Author Author [facility] Organization [facility] Address Unknown Phone Unavailable Care Team Providers Care Assembler [employer] Spider Name Role Phone Armando Eldridge MD PCP Encounter Details Care Team Description Date Type Department Li River MA,CCC-SCRIPT ARTIST Chronic diarrhea 08/31/2018 Orders Only [facility] Level [address] [place] [address] Social History Date Tobacco Use Types Packs/Day Years Used Current Every Day Smoker Smokeless Tobacco: Never Used Alcohol Use Drinks/Week oz/Week Comments Yes Sex Assigned at Date Recorded Not on file Industry Job Start Date Occupation Not on file Not on file Not on file Travel End Travel History Travel Start No recent travel history available. as of this encounter Plan of Treatment Not on fileas of this encounter Procedures Comments Procedure Name Priority Date/Time Associated Diagnosis CALPROTECTIN, STOOL Routine 08/19/2018 Chronic diarrhea PANCREATIC ELASTASE, Routine 08/19/2018 Chronic diarrhea STOOL C DIFFICILE BY PCR Routine 08/19/2018 Chronic diarrhea GIARDIA SCREEN,FECAL Routine 08/19/2018 Chronic diarrhea CULTURE-FECES Routine 08/19/2018 Chronic diarrhea W/SENSITIVITY in this encounter Results * C DIFFICILE BY PCR (08/19/2018) Narrative Performed At Performing Organization Address City/State/Zipcode Phone Number OTHER OUTSIDE LAB * GIARDIA SCREEN,FECAL (08/19/2018) Narrative Performed At Performing Organization Address City/State/Zipcode Phone Number OTHER OUTSIDE LAB * CULTURE-FECES W/SENSITIVITY (08/19/2018) Specimen Stool Narrative Performed At Performing Organization Address City/State/Zipcode Phone Number OTHER OUTSIDE LAB * PANCREATIC ELASTASE, STOOL (08/19/2018) Narrative Performed At Performing Organization Address City/State/Zipcode Phone Number OTHER OUTSIDE LAB * CALPROTECTIN, STOOL (08/19/2018) Calprotectin, Fecal 41 OTHER OUTSIDE LAB Specimen Feces Narrative Performed At Performing Organization Address City/State/Zipcode Phone Number OTHER OUTSIDE LAB in this encounter Visit Diagnoses Diagnosis Chronic diarrhea Diarrhea in this encounter
--- OUTSIDE RECORDS SUMMARY | 2018-11-28 18:13 | XMS REPORT | Encounter Summary ---
Author Author [facility] Organization [facility] Address Unknown Phone Unavailable Care Team Providers Care Ticket Attendant Name Role Phone Armando Eldridge MD PCP Reason for Visit * Reason Comments Medication Question Encounter Details Care Team Description Date Type Department Joaquin Ng MD [address] [place] [address] Medication Question 09/18/2018 Telephone [facility] Level [address] [place] [address] Social History Date Tobacco Use [...] encounter Miscellaneous Notes * Telephone Encounter - Kareen Hanley RN - 09/18/2018 3:56 PM RN URGENT CARE Call from Dr. Nicole Cabral's office, rheumatology; would like to discuss with Dr. Ng starting the pt on Humira for RA and GI sxs. She would also like to discuss pt being cleared of SIBO before starting Humira. Pt is negative for TB. Please call [phone]. Routing [address] Dr. Ng. URGENT CARE in this encounter Plan of Treatment Not on fileas of this encounter Visit Diagnoses Not on filein this encounter
--- OUTSIDE RECORDS SUMMARY | 2018-11-28 18:13 | XMS REPORT | Encounter Summary ---
Author Author [facility] Organization [facility] Address Unknown Phone Unavailable Care Team Providers Care Pouch Maker Name Role Phone Armando Eldridge MD PCP Reason for Visit * Reason Comments Prior Authorization Xifaxan Encounter Details Care Team Description Date Type Department Joaquin Ng MD [address] [place] [address] Prior Authorization (Xifaxan) 09/10/2018 Telephone [facility] Level [address] [place] [address] Social History Date Tobacco Use [...] encounter Miscellaneous Notes * Telephone Encounter - Annabel Finley RN - 09/20/2018 4:43 PM EXERCISE MANAGER Outgoing call to [facility] pharmacy and spoke with pharmacist. Advised of PA approval and Xifaxan script was processed successfully. CISE MANAGER * Telephone Encounter - Li River MA,CCC-KAI WHAKARURUHAU - 09/19/2018 8:51 AM EXERCISE MANAGER PA was approved through [employer]. Li River MA,CCC-KAI WHAKARURUHAU CISE MANAGER * Telephone Encounter - Li River MACCC-KAI WHAKARURUHAU - 09/10/2018 2:50 PM EXERCISE MANAGER PA initiated through [employer] Black Code: [id number]. Awaiting approval or denial. Can take up to 72 hours. If any questions contact . Li River MA,CCC-KAI WHAKARURUHAU CISE MANAGER in this encounter Plan of Treatment Not on fileas of this encounter Visit Diagnoses Not on filein this encounter
--- OUTSIDE RECORDS SUMMARY | 2018-11-28 18:13 | XMS REPORT | Clinical Summary ---
Author Author [facility] Organization [facility] Address Unknown Phone Unavailable Care Team Providers Care Personal Service Workers Name Role Phone Armando Eldridge MD PCP Source Comments Some departments are not documenting in the electronic medical record. If you do not see the information that you expected, contact Release of Information in the Health Information Management department at [phone] for further assistance in locating additional records.[facility] Allergies Comments Active Allergy Reactions Severity Noted Date Per pt. Not moving. Temp. Paralyzed when 3 months ago. Pertussis Vaccines SEE COMMENTS Low 08/06/2018 Medications End Date Status Medication Sig Dispensed Refills Start Date Active dextroamphetamine-ampheta Take 30 mg by 0 mine(+) (ADDERALL) 30 mg mouth twice tablet daily Active spironolactone Take 50 mg by 0 (ALDACTONE) 50 mg tablet mouth twice daily. Take with food. Active potassium citrate(+) Take 10 mEq 0 (UROCIT-K) 10 mEq (1,080 by mouth mg) tablet twice daily. Take with food. Active indapamide (LOZOL) 2.5 mg Take 2.5 mg 0 tablet by mouth daily. Active hydroxychloroquine Take 200 mg 0 (PLAQUENIL) 200 mg tablet by mouth daily. Take with food. Active cyanocobalamin (vitamin Place under 0 B-12) 500 mcg subl tongue daily. Active CYANOCOBALAMIN (VITAMIN Inject to 0 B-12) IJ area(s) as directed every 7 days. Active other medication 1 Dose daily. 0 Metafolate 1000 mg Active loperamide (IMODIUM A-D) Take 2 90 capsule 3 2 mg capsuleIndications: capsules by 8 diarrhea mouth initially, followed by 1 capsule by mouth after each loose stool up to a maximum of 8 tablets in 24 hours. Active rifAXIMin (XIFAXAN) 550 Take one 42 tablet 0 09/03/201 mg tabletIndications: tablet by 8 Diarrhea Predominant mouth three Irritable Colon times daily. Active Problems Problem Noted Date Diarrhea 11/30/2017 Overview: Added automatically from request for surgery [id number] Encounters Care Team Description Date Type Specialty Joaquin Ng MD Medication Question 09/18/2018 Telephone Gastroenterology Joaquin Ng MD Prior Authorization (Xifaxan) 09/10/2018 Telephone Gastroenterology Joaquin Ng MD Diarrhea 09/03/2018 Telephone Gastroenterology [place] MA,[facility] Chronic diarrhea 08/31/2018 Orders Only Gastroenterology from Last 3 Months Family History Medical History Relation Name Comments Kidney Disease Father Heart Disease Mother Relation Name Status Comments Father Mother Social History Date Tobacco Use Types Packs/Day Years Used Current Every Day Smoker Smokeless Tobacco: Never Used Alcohol Use Drinks/Week oz/Week Comments Yes Sex Assigned at Date Recorded Not on file Industry Job Start Date Occupation Not on file Not on file Not on file Travel End Travel History Travel Start No recent travel history available. Last Filed Vital Signs Time Taken Vital Sign Reading 08/06/2018 10:38 AM CDT Blood Pressure 131/89 08/06/2018 10:38 AM CDT Pulse 90 08/06/2018 10:38 AM CDT Temperature 37.1 C (98.7 F) - Respiratory Rate - 06/08/2018 8:55 AM CDT Oxygen Saturation 100% - Inhaled Oxygen - Concentration 08/06/2018 10:38 AM CDT Weight 45.9 kg (101 lb 3.2 oz) 08/06/2018 10:38 AM CDT Height 156.2 cm (5' 1.5") 08/06/2018 10:38 AM CDT Body Mass Index 18.81 Plan of Treatment Health Maintenance Due Date Last Done Comments PHYSICAL (COMPREHENSIVE) 1992 EXAM HIV SCREENING 2000 DTAP/TDAP VACCINES (1 - 2003 Tdap) CERVICAL CANCER SCREENING 2015 INFLUENZA VACCINE 05/23/2018 Results Not on filefrom Last 3 Months Insurance Payer Benefit Subscriber ID Type Phone Address Plan / Group [employer] xxxxxxxxxxxxxxx PPO OUT OF STATE (Home) [place] [address] Advance Directives Patient has advance care planning documents on file. For more information, please contact: [facility] [address] [place] [address]
--- OUTSIDE RECORDS SUMMARY | 2018-11-28 18:14 | XMS REPORT | Continuity of Care Document ---
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 04/08/2012 Ot 535.41 OTHER SPECIFIED GASTRITIS, WITH HEMORRHA 04/08/2012 Ot 938 FOREIGN BODY GI NOS 04/08/2012 Ot E915 FB ENTERING OTH ORIFICE 05/10/2013 MONISHA DARBY MD Ot 276.50 VOLUME DEPLETION, UNSPECIFIED 05/10/2013 MONISHA DARBY MD Ot 276.8 HYPOPOTASSEMIA 05/10/2013 MONISHA DARBY MD Ot 305.1 TOBACCO USE DISORDER 05/10/2013 MONISHA DARBY MD Ot 401.9 HYPERTENSION NOS 05/10/2013 MONISHA DARBY MD Ot 599.0 URIN TRACT INFECTION NOS 05/10/2013 MONISHA DARBY MD Ot 787.03 VOMITING ALONE 09/17/2013 DANO RAMIREZ Ot 276.8 HYPOPOTASSEMIA 09/17/2013 DANO RAMIREZ Ot 599.0 URIN TRACT INFECTION NOS 09/17/2013 DANO RAMIREZ Ot 787.02 NAUSEA ALONE 09/17/2013 DANO RAMIREZ Ot 789.03 ABDOMINAL PAIN, RIGHT LOWER QUADRANT 07/17/2015 NEO DO, COLLEEN K Ot 276.8 HYPOPOTASSEMIA 07/17/2015 NEO DO, COLLEEN K Ot 574.20 CHOLELITHIASIS NOS 07/17/2015 NEO DO, COLLEEN K Ot 787.01 NAUSEA WITH VOMITING 07/17/2015 NEO DO, COLLEEN K Ot 787.91 DIARRHEA 07/19/2015 RIVERA SHORT, JOEL T Ot 276.8 HYPOPOTASSEMIA 07/19/2015 RIVERA SHORT, JOEL T Ot 599.0 URIN TRACT INFECTION NOS 07/19/2015 RIVERA SHORT, JOEL T Ot 780.52 INSOMNIA, UNSPECIFIED 07/19/2015 RIVERA SHORT, JOEL T Ot 780.97 ALTERED MENTAL STATUS 07/19/2015 RIVERA SHORT, JOEL T Ot 787.91 DIARRHEA 07/24/2015 CLOVIS SHORT, DON Waite Ot R10.11 RIGHT UPPER QUADRANT PAIN 07/24/2015 CLOVIS SHORT, DON Waite Ot R11.2 NAUSEA WITH VOMITING, UNSPECIFIED 07/24/2015 CLOVIS SHORT, DON Waite Ot R19.7 DIARRHEA, UNSPECIFIED 08/10/2015 CLOVIS SHORT, DON Waite Ot 783.21 08/10/2015 DON BRANNON MD Ot 787.01 08/10/2015 CLOVIS SHORT, DON Waite Ot 789.01 03/23/2016 NEO DO, COLLEEN K Ot 276.8 HYPOPOTASSEMIA 03/23/2016 NEO DO, COLLEEN K Ot 574.20 CHOLELITHIASIS NOS 03/23/2016 NEO DO, COLLEEN K Ot 787.01 NAUSEA WITH VOMITING 03/23/2016 NEO DO, COLLEEN K Ot 787.91 DIARRHEA 11/08/2017 CLOVIS SHORT, DON Waite Ot 783.21 LOSS OF WEIGHT 11/08/2017 DON BRANNON MD Ot 787.01 NAUSEA WITH VOMITING 11/08/2017 CLOVIS SHORT, DON Waite Ot 789.01 ABDOMINAL PAIN, RIGHT UPPER QUADRANT 11/08/2017 CLOVIS SHORT, DON Waite Ot Z01.818 ENCOUNTER FOR OTHER PREPROCEDURAL EXAMIN 11/10/2017 CLOVIS SHORT, DON Waite Ot E87.6 HYPOKALEMIA 11/10/2017 CLOVIS SHORT, DON Waite Ot F17.210 NICOTINE DEPENDENCE, CIGARETTES, UNCOMPL 11/10/2017 CLOVIS SHORT, DON Waite Ot F41.9 ANXIETY DISORDER, UNSPECIFIED 11/10/2017 CLOVIS SHORT, DON Waite Ot F90.9 ATTENTION-DEFICIT HYPERACTIVITY DISORDER 11/10/2017 CLOVIS SHORT, DON Waite Ot K58.9 IRRITABLE BOWEL SYNDROME WITHOUT DIARRHE 11/10/2017 CLOVIS SHORT, DON Waite Ot K85.90 ACUTE PANCREATITIS WITHOUT NECROSIS OR I 11/10/2017 CLOVIS SHORT, DON Waite Ot L30.9 DERMATITIS, UNSPECIFIED 11/10/2017 CLOVIS SHORT, DON Waite Ot R60.9 EDEMA, UNSPECIFIED 11/13/2017 CLOVIS SHORT, DON Waite Ot D64.9 ANEMIA, UNSPECIFIED 11/13/2017 CLOVIS SHORT, DON Waite Ot E87.6 HYPOKALEMIA 11/13/2017 CLOVIS SHORT, DON Waite Ot F17.210 NICOTINE DEPENDENCE, CIGARETTES, UNCOMPL 11/13/2017 CLOVIS SHORT, DON Waite Ot F41.9 ANXIETY DISORDER, UNSPECIFIED 11/13/2017 CLOVIS SHORT, DON Waite Ot F90.9 ATTENTION-DEFICIT HYPERACTIVITY DISORDER 11/13/2017 CLOVIS SHORT, DON Waite Ot K58.9 IRRITABLE BOWEL SYNDROME WITHOUT DIARRHE 11/13/2017 CLOVIS SHORT, DON Waite Ot K85.00 IDIOPATHIC ACUTE PANCREATITIS WITHOUT NE 11/13/2017 CLOVIS SHORT, DON Waite Ot K85.90 ACUTE PANCREATITIS WITHOUT NECROSIS OR I 11/13/2017 CLOVIS SHORT, DON Waite Ot L30.9 DERMATITIS, UNSPECIFIED 11/13/2017 CLOVIS SHORT, DON Waite Ot R19.7 DIARRHEA, UNSPECIFIED 11/13/2017 CLOVIS SHORT, DON Waite Ot R60.9 EDEMA, UNSPECIFIED 03/26/2018 CLOVIS SHORT, DON Waite Ot R10.13 EPIGASTRIC PAIN 08/22/2018 LISBETH SHORT, RAFAEL Ramírez Ot K52.9 NONINFECTIVE GASTROENTERITIS AND COLITIS 11/17/2018 LISBETH SHORT, RAFAEL Ramírez Ot K52.9 NONINFECTIVE GASTROENTERITIS AND COLITIS 11/20/2018 LISBETH SHORT, RAFAEL Ramírez Ot K52.9 NONINFECTIVE GASTROENTERITIS AND COLITIS Procedures Code Description Performed By Performed On 45.13 OTHER ENDOSCOPY OF INTEST 04/07/2012 Results Test Result Range Complete blood count (CBC) with automated white blood cell (WBC) differential - 11/08/17 05:53 Blood leukocytes automated count (number/volume) 7.5 10*3/uL 4.3-11.0 Blood erythrocytes automated count (number/volume) 4.07 10*6/uL 4.35-5.85 Venous blood hemoglobin measurement (mass/volume) 13.4 g/dL 11.5-16.0 Blood hematocrit (volume fraction) 38 % 35-52 Automated erythrocyte mean corpuscular volume 93 [foz_us] 80-99 Automated erythrocyte mean corpuscular hemoglobin (mass per erythrocyte) 33 pg 25-34 Automated erythrocyte mean corpuscular hemoglobin concentration measurement ( mass/volume) 35 g/dL 32-36 Automated erythrocyte distribution width ratio 12.3 % 10.0-14.5 Automated blood platelet count (count/volume) 274 10*3/uL 130-400 Automated blood platelet mean volume measurement 9.5 [foz_us] 7.4-10.4 Automated blood neutrophils/100 leukocytes 57 % 42-75 Automated blood lymphocytes/100 leukocytes 34 % 12-44 Blood monocytes/100 leukocytes 7 % 0-12 Automated blood eosinophils/100 leukocytes 2 % 0-10 Automated blood basophils/100 leukocytes 0 % 0-10 Blood neutrophils automated count (number/volume) 4.2 10*3 1.8-7.8 Blood lymphocytes automated count (number/volume) 2.5 10*3 1.0-4.0 Blood monocytes automated count (number/volume) 0.5 10*3 0.0-1.0 Automated eosinophil count 0.1 10*3/uL 0.0-0.3 Automated blood basophil count (count/volume) 0.0 10*3/uL 0.0-0.1 Serum or plasma choriogonadotropin ( test) detection - 11/08/17 05:53 Serum or plasma choriogonadotropin ( test) detection NEGATIVE NEGATIVE Comprehensive metabolic panel - 11/08/17 05:53 Serum or plasma sodium measurement (moles/volume) 139 mmol/L 135-145 Serum or plasma potassium measurement (moles/volume) 3.2 mmol/L 3.6-5.0 Serum or plasma chloride measurement (moles/volume) 98 mmol/L 98-107 Carbon dioxide 30 mmol/L 21-32 Serum or plasma anion gap determination (moles/volume) 11 mmol/L 5-14 Serum or plasma urea nitrogen measurement (mass/volume) 6 mg/dL 7-18 Serum or plasma creatinine measurement (mass/volume) 0.68 mg/dL 0.60-1.30 Serum or plasma urea nitrogen/creatinine mass ratio 9 NRG Serum or plasma creatinine measurement with calculation of estimated glomerular filtration rate > NRG Serum or plasma glucose measurement (mass/volume) 93 mg/dL 70-105 Serum or plasma calcium measurement (mass/volume) 9.7 mg/dL 8.5-10.1 Serum or plasma total bilirubin measurement (mass/volume) 0.7 mg/dL 0.1-1.0 Serum or plasma alkaline phosphatase measurement (enzymatic activity/volume) 57 U/L 40-136 Serum or plasma aspartate aminotransferase measurement (enzymatic activity/ volume) 45 U/L 5-34 Serum or plasma alanine aminotransferase measurement (enzymatic activity/volume ) 34 U/L 0-55 Serum or plasma protein measurement (mass/volume) 6.6 g/dL 6.4-8.2 Serum or plasma albumin measurement (mass/volume) 3.6 g/dL 3.2-4.5 Magnesium - 11/08/17 05:53 Magnesium 1.3 mg/dL 1.8-2.4 Lipase - 11/08/17 05:53 Lipase 1100 U/L 8-78 Serum or plasma thyrotropin measurement by detection limit <=0.05 miu/l (units/ volume) - 11/08/17 05:53 Serum or plasma thyrotropin measurement by detection limit <=0.05 miu/l (units/ volume) 1.30 u[iU]/mL 0.35-4.94 Serum or plasma ethanol measurement (mass/volume) - 11/08/17 05:53 Serum or plasma ethanol measurement (mass/volume) < mg/dL <10 Complete urinalysis with reflex to culture - 11/08/17 06:10 Urine color determination TINO NRG Urine clarity determination CLEAR NRG Urine pH measurement by test strip 7 5-9 Specific gravity of urine by test strip 1.020 1.016- 1.022 Urine protein assay by test strip, semi-quantitative 2+ NEGATIVE Urine glucose detection by automated test strip NEGATIVE NEGATIVE Erythrocytes detection in urine sediment by light microscopy 1+ NEGATIVE Urine ketones detection by automated test strip NEGATIVE NEGATIVE Urine nitrite detection by test strip NEGATIVE NEGATIVE Urine total bilirubin detection by test strip 1+ NEGATIVE Urine urobilinogen measurement by automated test strip (mass/volume) 1 mg/dL NORMAL Urine leukocyte esterase detection by dipstick 1+ NEGATIVE Automated urine sediment erythrocyte count by microscopy (number/high power field) [HPF] NRG Automated urine sediment leukocyte count by microscopy (number/high power field ) [HPF] NRG Bacteria detection in urine sediment by light microscopy NEGATIVE NRG Squamous epithelial cells detection in urine sediment by light microscopy 2-5 NRG Crystals detection in urine sediment by light microscopy PRESENT NRG Casts detection in urine sediment by light microscopy NONE NRG Mucus detection in urine sediment by light microscopy NEGATIVE NRG Complete urinalysis with reflex to culture NO NRG Uric acid crystals detection in urine sediment by light microscopy LARGE NRG Urine drug screening test - 11/08/17 11:40 Urine phencyclidine detection by screening method NEGATIVE NEGATIVE Urine benzodiazepines detection by screening method NEGATIVE NEGATIVE Urine cocaine detection NEGATIVE NEGATIVE Urine amphetamines detection by screening method POSITIVE NEGATIVE Urine methamphetamine detection by screening method NEGATIVE NEGATIVE Urine cannabinoids detection by screening method NEGATIVE NEGATIVE Urine opiates detection by screening method NEGATIVE NEGATIVE Urine barbiturates detection NEGATIVE NEGATIVE Screening urine tricyclic antidepressants detection NEGATIVE NEGATIVE Urine methadone detection by screening method NEGATIVE NEGATIVE Urine oxycodone detection NEGATIVE NEGATIVE Urine propoxyphene detection NEGATIVE NEGATIVE Complete blood count (CBC) with automated white blood cell (WBC) differential - 11/09/17 05:40 Blood leukocytes automated count (number/volume) 8.6 10*3/uL 4.3-11.0 Blood erythrocytes automated count (number/volume) 3.76 10*6/uL 4.35-5.85 Venous blood hemoglobin measurement (mass/volume) 12.2 g/dL 11.5-16.0 Blood hematocrit (volume fraction) 36 % 35-52 Automated erythrocyte mean corpuscular volume 96 [foz_us] 80-99 Automated erythrocyte mean corpuscular hemoglobin (mass per erythrocyte) 32 pg 25-34 Automated erythrocyte mean corpuscular hemoglobin concentration measurement ( mass/volume) 34 g/dL 32-36 Automated erythrocyte distribution width ratio 12.4 % 10.0-14.5 Automated blood platelet count (count/volume) 226 10*3/uL 130-400 Automated blood platelet mean volume measurement 10.3 [foz_us] 7.4-10.4 Automated blood neutrophils/100 leukocytes 74 % 42-75 Automated blood lymphocytes/100 leukocytes 18 % 12-44 Blood monocytes/100 leukocytes 6 % 0-12 Automated blood eosinophils/100 leukocytes 2 % 0-10 Automated blood basophils/100 leukocytes 0 % 0-10 Blood neutrophils automated count (number/volume) 6.4 10*3 1.8-7.8 Blood lymphocytes automated count (number/volume) 1.5 10*3 1.0-4.0 Blood monocytes automated count (number/volume) 0.5 10*3 0.0-1.0 Automated eosinophil count 0.2 10*3/uL 0.0-0.3 Automated blood basophil count (count/volume) 0.0 10*3/uL 0.0-0.1 Comprehensive metabolic panel - 11/09/17 05:40 Serum or plasma sodium measurement (moles/volume) 137 mmol/L 135-145 Serum or plasma potassium measurement (moles/volume) 3.9 mmol/L 3.6-5.0 Serum or plasma chloride measurement (moles/volume) 102 mmol/L 98-107 Carbon dioxide 25 mmol/L 21-32 Serum or plasma anion gap determination (moles/volume) 10 mmol/L 5-14 Serum or plasma urea nitrogen measurement (mass/volume) 3 mg/dL 7-18 Serum or plasma creatinine measurement (mass/volume) 0.61 mg/dL 0.60-1.30 Serum or plasma urea nitrogen/creatinine mass ratio 5 NRG Serum or plasma creatinine measurement with calculation of estimated glomerular filtration rate > NRG Serum or plasma glucose measurement (mass/volume) 105 mg/dL 70-105 Serum or plasma calcium measurement (mass/volume) 8.4 mg/dL 8.5-10.1 Serum or plasma total bilirubin measurement (mass/volume) 0.7 mg/dL 0.1-1.0 Serum or plasma alkaline phosphatase measurement (enzymatic activity/volume) 50 U/L 40-136 Serum or plasma aspartate aminotransferase measurement (enzymatic activity/ volume) 30 U/L 5-34 Serum or plasma alanine aminotransferase measurement (enzymatic activity/volume ) 23 U/L 0-55 Serum or plasma protein measurement (mass/volume) 5.5 g/dL 6.4-8.2 Serum or plasma albumin measurement (mass/volume) 3.0 g/dL 3.2-4.5 Lipase - 11/09/17 05:40 Lipase 1408 U/L Lipase - 11/10/17 07:00 Lipase 613 U/L Comprehensive metabolic panel - 11/11/17 05:05 Serum or plasma sodium measurement (moles/volume) 138 mmol/L 135-145 Serum or plasma potassium measurement (moles/volume) 3.2 mmol/L 3.6-5.0 Serum or plasma chloride measurement (moles/volume) 105 mmol/L 98-107 Carbon dioxide 24 mmol/L 21-32 Serum or plasma anion gap determination (moles/volume) 9 mmol/L 5-14 Serum or plasma urea nitrogen measurement (mass/volume) 7 mg/dL 7-18 Serum or plasma creatinine measurement (mass/volume) 0.55 mg/dL 0.60-1.30 Serum or plasma urea nitrogen/creatinine mass ratio 13 NRG Serum or plasma creatinine measurement with calculation of estimated glomerular filtration rate > NRG Serum or plasma glucose measurement (mass/volume) 105 mg/dL 70-105 Serum or plasma calcium measurement (mass/volume) 8.1 mg/dL 8.5-10.1 Serum or plasma total bilirubin measurement (mass/volume) 0.4 mg/dL 0.1-1.0 Serum or plasma alkaline phosphatase measurement (enzymatic activity/volume) 74 U/L 40-136 Serum or plasma aspartate aminotransferase measurement (enzymatic activity/ volume) 29 U/L 5-34 Serum or plasma alanine aminotransferase measurement (enzymatic activity/volume ) 17 U/L 0-55 Serum or plasma protein measurement (mass/volume) 5.1 g/dL 6.4-8.2 Serum or plasma albumin measurement (mass/volume) 2.5 g/dL 3.2-4.5 Lipase - 11/11/17 05:05 Lipase 392 U/L Serum iron and total iron binding capacity panel - 11/12/17 05:13 Serum or plasma iron measurement (mass/volume) 13 % 35- 180 Total iron binding capacity and transferrin saturation measurement 6 % 15-50 Iron binding capacity [mass/volume] in serum or plasma 215 % 280-380 UIBC (unsaturated iron binding capacity) 202 % 55-450 Serum or plasma ferritin measurement (mass/volume) 86.5 % 15.0-150.0 Complete blood count (CBC) with automated white blood cell (WBC) differential - 11/12/17 05:17 Blood leukocytes automated count (number/volume) 6.9 10*3/uL 4.3-11.0 Blood erythrocytes automated count (number/volume) 2.94 10*6/uL 4.35-5.85 Venous blood hemoglobin measurement (mass/volume) 9.4 g/dL 11.5-16.0 Blood hematocrit (volume fraction) 29 % 35-52 Automated erythrocyte mean corpuscular volume 97 [foz_us] 80-99 Automated erythrocyte mean corpuscular hemoglobin (mass per erythrocyte) 32 pg 25-34 Automated erythrocyte mean corpuscular hemoglobin concentration measurement ( mass/volume) 33 g/dL 32-36 Automated erythrocyte distribution width ratio 12.3 % 10.0-14.5 Automated blood platelet count (count/volume) 242 10*3/uL 130-400 Automated blood platelet mean volume measurement 9.5 [foz_us] 7.4-10.4 Automated blood neutrophils/100 leukocytes 56 % 42-75 Automated blood lymphocytes/100 leukocytes 30 % 12-44 Blood monocytes/100 leukocytes 10 % 0-12 Automated blood eosinophils/100 leukocytes 4 % 0-10 Automated blood basophils/100 leukocytes 0 % 0-10 Blood neutrophils automated count (number/volume) 3.9 10*3 1.8-7.8 Blood lymphocytes automated count (number/volume) 2.0 10*3 1.0-4.0 Blood monocytes automated count (number/volume) 0.7 10*3 0.0-1.0 Automated eosinophil count 0.3 10*3/uL 0.0-0.3 Automated blood basophil count (count/volume) 0.0 10*3/uL 0.0-0.1 Whole blood basic metabolic panel - 11/12/17 05:17 Serum or plasma sodium measurement (moles/volume) 141 mmol/L 135-145 Serum or plasma potassium measurement (moles/volume) 3.2 mmol/L 3.6-5.0 Serum or plasma chloride measurement (moles/volume) 109 mmol/L 98-107 Carbon dioxide 21 mmol/L 21-32 Serum or plasma anion gap determination (moles/volume) 11 mmol/L 5-14 Serum or plasma urea nitrogen measurement (mass/volume) 6 mg/dL 7-18 Serum or plasma creatinine measurement (mass/volume) 0.51 mg/dL 0.60-1.30 Serum or plasma urea nitrogen/creatinine mass ratio 12 NRG Serum or plasma creatinine measurement with calculation of estimated glomerular filtration rate > NRG Serum or plasma glucose measurement (mass/volume) 110 mg/dL 70-105 Serum or plasma calcium measurement (mass/volume) 7.8 mg/dL 8.5-10.1 Lipase - 11/12/17 05:17 Lipase 247 U/L 8-78 Magnesium - 11/12/17 05:17 Magnesium 0.9 mg/dL 1.8-2.4 Magnesium - 11/12/17 19:25 Magnesium 2.1 mg/dL 1.8-2.4 Complete blood count (CBC) with automated white blood cell (WBC) differential - 11/13/17 05:21 Blood leukocytes automated count (number/volume) 8.4 10*3/uL 4.3-11.0 Blood erythrocytes automated count (number/volume) 3.21 10*6/uL 4.35-5.85 Venous blood hemoglobin measurement (mass/volume) 10.2 g/dL 11.5-16.0 Blood hematocrit (volume fraction) 30 % 35-52 Automated erythrocyte mean corpuscular volume 94 [foz_us] 80-99 Automated erythrocyte mean corpuscular hemoglobin (mass per erythrocyte) 32 pg 25-34 Automated erythrocyte mean corpuscular hemoglobin concentration measurement ( mass/volume) 34 g/dL 32-36 Automated erythrocyte distribution width ratio 12.1 % 10.0-14.5 Automated blood platelet count (count/volume) 351 10*3/uL 130-400 Automated blood platelet mean volume measurement 9.8 [foz_us] 7.4-10.4 Automated blood neutrophils/100 leukocytes 65 % 42-75 Automated blood lymphocytes/100 leukocytes 24 % 12-44 Blood monocytes/100 leukocytes 8 % 0-12 Automated blood eosinophils/100 leukocytes 3 % 0-10 Automated blood basophils/100 leukocytes 0 % 0-10 Blood neutrophils automated count (number/volume) 5.4 10*3 1.8-7.8 Blood lymphocytes automated count (number/volume) 2.0 10*3 1.0-4.0 Blood monocytes automated count (number/volume) 0.6 10*3 0.0-1.0 Automated eosinophil count 0.3 10*3/uL 0.0-0.3 Automated blood basophil count (count/volume) 0.0 10*3/uL 0.0-0.1 Whole blood basic metabolic panel - 11/13/17 05:21 Serum or plasma sodium measurement (moles/volume) 142 mmol/L 135-145 Serum or plasma potassium measurement (moles/volume) 3.1 mmol/L 3.6-5.0 Serum or plasma chloride measurement (moles/volume) 109 mmol/L 98-107 Carbon dioxide 22 mmol/L 21-32 Serum or plasma anion gap determination (moles/volume) 11 mmol/L 5-14 Serum or plasma urea nitrogen measurement (mass/volume) 3 mg/dL 7-18 Serum or plasma creatinine measurement (mass/volume) 0.54 mg/dL 0.60-1.30 Serum or plasma urea nitrogen/creatinine mass ratio 6 NRG Serum or plasma creatinine measurement with calculation of estimated glomerular filtration rate > NRG Serum or plasma glucose measurement (mass/volume) 83 mg/dL 70-105 Serum or plasma calcium measurement (mass/volume) 8.4 mg/dL 8.5-10.1 Magnesium - 11/13/17 05:21 Magnesium 1.8 mg/dL 1.8-2.4 Lipase - 11/13/17 05:21 Lipase 231 U/L 8-78 Automated blood complete blood count (hemogram) panel - 03/13/18 11:10 Blood leukocytes automated count (number/volume) 7.6 10*3/uL 4.3-11.0 Blood erythrocytes automated count (number/volume) 4.39 10*6/uL 4.35-5.85 Venous blood hemoglobin measurement (mass/volume) 13.5 g/dL 11.5-16.0 Blood hematocrit (volume fraction) 39 % 35-52 Automated erythrocyte mean corpuscular volume 88 [foz_us] 80-99 Automated erythrocyte mean corpuscular hemoglobin (mass per erythrocyte) 31 pg 25-34 Automated erythrocyte mean corpuscular hemoglobin concentration measurement ( mass/volume) 35 g/dL 32-36 Automated erythrocyte distribution width ratio 16.3 % 10.0-14.5 Automated blood platelet count (count/volume) 321 10*3/uL 130-400 Automated blood platelet mean volume measurement 9.1 [foz_us] 7.4-10.4 Comprehensive metabolic panel - 03/13/18 11:10 Serum or plasma sodium measurement (moles/volume) 137 mmol/L 135-145 Serum or plasma potassium measurement (moles/volume) 4.3 mmol/L 3.6-5.0 Serum or plasma chloride measurement (moles/volume) 97 mmol/L 98-107 Carbon dioxide 29 mmol/L 21-32 Serum or plasma anion gap determination (moles/volume) 11 mmol/L 5-14 Serum or plasma urea nitrogen measurement (mass/volume) 7 mg/dL 7-18 Serum or plasma creatinine measurement (mass/volume) 0.74 mg/dL 0.60-1.30 Serum or plasma urea nitrogen/creatinine mass ratio 9 NRG Serum or plasma creatinine measurement with calculation of estimated glomerular filtration rate > NRG Serum or plasma glucose measurement (mass/volume) 96 mg/dL 70-105 Serum or plasma calcium measurement (mass/volume) 9.9 mg/dL 8.5-10.1 Serum or plasma total bilirubin measurement (mass/volume) 0.3 mg/dL 0.1-1.0 Serum or plasma alkaline phosphatase measurement (enzymatic activity/volume) 41 U/L 40-136 Serum or plasma aspartate aminotransferase measurement (enzymatic activity/ volume) 21 U/L 5-34 Serum or plasma alanine aminotransferase measurement (enzymatic activity/volume ) 9 U/L 0-55 Serum or plasma protein measurement (mass/volume) 7.5 g/dL 6.4-8.2 Serum or plasma albumin measurement (mass/volume) 4.4 g/dL 3.2-4.5 Lipase - 03/13/18 11:10 Lipase 37 U/L 8-78 Serum or plasma C reactive protein measurement (mass/volume) - 03/13/18 11:10 Serum or plasma C reactive protein measurement (mass/volume) 0.07 mg /dL 0.00-0.50 Serum ragweed IgE antibody assay - 08/19/18 17:28 Serum ragweed IgE antibody assay Negative NRG Stool bacteria identification by culture - 08/19/18 17:28 Stool bacteria identification by culture N2 NR [id number] - 08/19/18 17:28 [id number] SEE REPORT NRG QUANTITY OF GROWTH . NRG CALPROTECTIN FECAL - 08/19/18 17:28 CALPROT STL 41 % 0-49 Stool electrolyte panel - 08/19/18 17:28 Stool sodium measurement (moles/mass) TNP () Stool potassium measurement TNP () Stool chloride measurement TNP () PANCREATIC ELASTASE FECAL - 08/19/18 17:28 STOOL ELAST >500 >=201 Encounters ACCT No. Visit Date/Time Discharge Status Pt. Type Provider Facility Loc./Unit Complaint [id number] 11/18/2018 00:09:00 11/18/2018 23:59:59 CLS Preadmit RAFAEL BOB MD [facility] K52.9 [id number] 08/19/2018 16:55:00 11/17/2018 00:01:00 DIS Outpatient RAFAEL BOB MD [facility] K52.9 [id number] 03/13/2018 10:58:00 03/13/2018 23:59:59 CLS Outpatient DON BRANNON MD [facility] EPIGASTRIC ABD PAIN [id number] 11/08/2017 09:50:00 11/13/2017 10:40:00 DIS Inpatient DON BRANNON MD [facility] 4TH PANCREATITIS;MILD HYPOKALEMIA [id number] 07/24/2015 07:46:00 07/24/2015 11:45:00 DIS Outpatient DON BRANNON MD [facility] SDC ABD PAIN [id number] 07/23/2015 05:50:00 07/23/2015 23:59:59 CLS Outpatient DON BRANNON MD [facility] PREOP ABD PAIN [id number] 07/20/2015 09:34:00 07/20/2015 23:59:59 CLS Outpatient DON BRANNON MD [facility] CARD NAUSEA VOMITING RIGHT UPPER QUADRANT ABDOMINAL [place]REE [id number] 07/18/2015 19:45:00 07/19/2015 00:31:00 DIS Emergency RIVERA SHORT, JOEL Garcia [facility] ER AMS;HEART PALPITATIONS ;LOW POTASSIUM [id number] 07/16/2015 23:13:00 07/17/2015 02:54:00 DIS Emergency COLLEEN LARSON DO [facility] ER V,D,N [id number] 09/17/2013 15:12:00 09/17/2013 18:36:00 DIS Emergency MCKENZIE HADLEY, DANO Pritchett [facility] ER ABD PAIN [id number] 05/10/2013 16:35:00 05/10/2013 18:58:00 DIS Emergency MONISHA DARBY MD [facility] POSS DEHYDRATION [id number] 04/06/2012 14:53:00 Document Registration [id number] 10/11/2010 23:54:00 Document Registration
[2018-11-28 18:38] LABS: BILIRUBIN,URINE NEGATIVE (NEGATIVE); CLARITY,URINE CLEAR; COLOR,URINE YELLOW; GLUCOSE, URINE (UA) NEGATIVE (NEGATIVE); KETONES,URINE 2+ (NEGATIVE); LEUKOCYTE ESTERASE ,URINE 1+ (NEGATIVE); NITRITE,URINE NEGATIVE (NEGATIVE); PH,URINE 6 (5-9); PROTEIN,URINE 2+ (NEGATIVE); UROBILINOGEN,URINE 1 MG/DL (NORMAL)
[2018-11-28 18:39] LABS: BASOPHILS # (AUTO) 0.1 10^3/uL (0.0-0.1); BASOPHILS % (AUTO) 1 % (0-10); EOSINOPHILS # (AUTO) 0.1 10^3/uL (0.0-0.3); EOSINOPHILS % (AUTO) 1 % (0-10); HEMATOCRIT 41 % (35-52); HEMOGLOBIN 14.3 G/DL (11.5-16.0); LYMPHOCYTES # (AUTO) 4.3 X 10^3 (1.0-4.0); LYMPHOCYTES % (AUTO) 43 % (12-44); MEAN CORPUSCULAR HEMOGLOBIN 30 PG (25-34); MEAN CORPUSCULAR HGB CONC 35 G/DL (32-36); MEAN CORPUSCULAR VOLUME 86 FL (80-99); MEAN PLATELET VOLUME 10.4 FL (7.4-10.4); MONOCYTES # (AUTO) 0.5 X 10^3 (0.0-1.0); MONOCYTES % (AUTO) 5 % (0-12); NEUTROPHILS % (AUTO) 50 % (42-75); PLATELET COUNT 291 10^3/uL (130-400); RED CELL DISTRIBUTION WIDTH 12.5 % (10.0-14.5)
[2018-11-28] MEDS ORDERED: INDA2.5T2 (18:40)
[2018-11-28] MEDS ORDERED: ADAL40PE5 (18:40)
[2018-11-28 18:56] LABS: ALANINE AMINOTRANSFERASE 12 U/L (0-55); ALBUMIN 4.4 GM/DL (3.2-4.5); ALKALINE PHOSPHATASE 42 U/L (40-136); BACTERIA,URINE MODERATE /HPF; BILIRUBIN,TOTAL 0.4 MG/DL (0.1-1.0); BUN/CREATININE RATIO 15; CALCIUM 9.6 MG/DL (8.5-10.1); CARBON DIOXIDE 29 MMOL/L (21-32); CHLORIDE 97 MMOL/L (98-107); CREATININE SERUM 0.79 MG/DL (0.60-1.30); GFR ESTIMATED > 60; GLUCOSE 97 MG/DL (70-105); LIPASE 47 U/L (8-78); POTASSIUM 3.2 MMOL/L (3.6-5.0); RBC,URINE 0-2 /HPF; SODIUM 138 MMOL/L (135-145); TOTAL PROTEIN 7.3 GM/DL (6.4-8.2)
[2018-11-28 19:27] VITALS: BP 132/92
[2018-11-28] MEDS ORDERED: NS IV 1000 ML 1,000 ML IV ONE (19:36)
[2018-11-28] MEDS ORDERED: LACTATED RINGERS 1,000 ML IV ONE (19:36)
[2018-11-28] MEDS ORDERED: ONDANSETRON 4 MG/2 ML (SDV) Z0FRAN ONE (19:42)
[2018-11-28] MEDS ORDERED: ONDANSETRON 4 MG/2 ML (SDV) Z0FRAN IVP ONE (19:45)
[2018-11-28] MEDS ORDERED: CEPHALEXIN 250 MG (KEFLEX) CAP PO ONE (19:45)
[2018-11-28] MEDS ORDERED: KCL 10 MEQ TAB (MICRO K) PO ONE (19:45)
[2018-11-28] MEDS ORDERED: CEPH-507 PO (20:03)
[2018-11-28] MEDS ORDERED: ONDA4TAB11 SL (20:03)
--- NOTE | 2018-11-28 20:03 | ED Abdominal Pain ---
General Chief Complaint: Abdominal/GI Problems Stated Complaint: ABD PAIN;Hx OF PANCREATITIS Nursing Triage Note: ARRIVED VIA AMB WITH COMPLAINTS OF RUQ PAIN STARTING LAST NIGHT. HX OF PANCREATITIS. Sepsis Screen: Possible Sepsis Risk Source of Information: Patient, Old Records Exam Limitations: No Limitations History of Present Illness Date Seen by Provider: Nov 28, 2018 Time Seen by Provider: 18:12 Initial Comments This 33-year-old woman presents to the emergency room with right upper quadrant pain for the past 2 days. Pain has been worsening but is not yet severe. It does not seem to be affected by eating. It feels better when lying down and is worse with walking and movement. Patient started Humira about one month ago for treatment of rheumatoid arthritis. She has a history of chronic diarrhea which is unchanged. She is afebrile and denies vomiting. Her primary care provider is Dr. Eldridge. Her dyeing machine tender is Dr. Cabral in [place]. Allergies and Home Medications Allergies Uncoded Allergies: WHOOPING COUGH VACCINE (Allergy, Unknown, 10/12/10) Home Medications Cephalexin 500 Mg Capsule, 500 MG PO BID Prescribed by: JOEL EGAN on 11/28/182002 Dextroamphetamine/Amphetamine 30 Mg Tablet, 30 MG PO BID, (Reported) Ondansetron 4 Mg Tab.rapdis, 4 MG SL Q4H PRN for NAUSEA/VOMITING Prescribed by: JOEL EGAN on 11/28/182002 Potassium Chloride 10 Meq Tablet.er, 10 MEQ PO DAILY, (Reported) Spironolactone 50 Mg Tablet, 50 MG PO DAILY, (Reported) Tramadol HCl 50 Mg Tablet, 50 MG PO Q4H Prescribed by: APRIL HUANG on 11/13/17 1030 Patient Home Medication List Home Medication List Reviewed: Yes Review of Systems Review of Systems Constitutional: no symptoms reported EENTM: No Symptoms Reported Respiratory: No Symptoms Reported Cardiovascular: No Symptoms Reported Gastrointestinal: See HPI Genitourinary: No Symptoms Reported Musculoskeletal: no symptoms reported Skin: no symptoms reported Psychiatric/Neurological: No Symptoms Reported Endocrine: No Symptoms Reported Past Yvmdnfa-Ddcymj-Tujope Hx Past Med/Social Hx: Reviewed and Corrections made Patient Social History Alcohol Use: Denies Use Number of Drinks Today: AA Alcohol Beverage of Choice: Beer Recreational Drug Use: No Smoking Status: Current Everyday Smoker Type Used: Cigarettes Recent Foreign Travel: No Contact w/Someone Who Travel: No Recent Infectious Disease Expo: No Recent Hopitalizations: No Immunizations Up To Date Tetanus Booster (TDap): More than 5yrs PED Vaccines UTD: No Seasonal Allergies Seasonal Allergies: Yes Past Medical History Surgeries: Yes (INFECTION CUT OUT OF FINGER, EGD, wisdom teeth) Respiratory: Yes Pneumonia Currently Using CPAP: No Currently Using BIPAP: No Cardiac: Yes Chronic Edema/Swelling Neurological: No : No Last Menstrual Period: Nov 21, 2018 Reproductive Disorders: No Genitourinary: No Gastrointestinal: Yes (GASTRITIS, CHRONIC NAUSEA/VOMITING/DIARRHEA/ABDOMINAL PAIN) Chronic Diarrhea, Irritable Bowel Musculoskeletal: Yes Rheumatoid Arthritis Endocrine: Yes (recurrent hypokalemia) HEENT: No Cancer: No Psychosocial: Yes ADD/ADHD, Anxiety Integumentary: Yes (chronic dry skin) Eczema Blood Disorders: No Family Medical History Arthritis 19 MOTHER Asthma G8 SISTER Cardiovascular disease 19 FATHER 19 MOTHER Drug abuse G8 SISTER Hypercholesterolemia 19 FATHER 19 MOTHER Hypertension 19 FATHER 19 MOTHER Kidney disease 19 FATHER 19 MOTHER Myocardial infarction 19 MOTHER Neoplasm 19 FATHER (LEUKEMIA) Osteoporosis 19 MOTHER Psychosocial problem G8 SISTER GI Disease Physical Exam Vital Signs Vital Signs - First Documented 11/28/18 18:10 Temp 98.5 Pulse 93 Resp 16 B/P (MAP) 149/94 (112) Pulse Ox 100 O2 Delivery Room Air Capillary Refill : Less Than 3 Seconds Height/Weight/BMI Height: 5'1.00" Weight: 102lbs. 2.0oz. 46.118016fa; 21.4 BMI Method:Stated General Appearance: WD/WN, no apparent distress, thin HEENT: PERRL/EOMI, normal ENT inspection, pharynx normal Neck: normal inspection Respiratory: lungs clear, normal breath sounds, no respiratory distress, no accessory muscle use Cardiovascular: regular rate, rhythm, no edema, no murmur Gastrointestinal: normal bowel sounds, soft, tenderness (Suprapubic and right upper quadrant) Extremities: non-tender, no pedal edema Neurologic/Psychiatric: sinter feeder II-XII nml as tested, no motor/sensory deficits, alert, normal mood/affect, oriented x 3 Skin: normal color, warm/dry, other (chronic skin changes to the feet and ankles) Progress/Results/Core Measures Results/Orders Lab Results Laboratory Tests Test 11/28/18 18:31 Range/Units White Blood Count 10.0 4.3-11.0 10^3/uL Red Blood Count 4.82 4.35-5.85 10^6/uL Hemoglobin 14.3 11.5-16.0 G/DL Hematocrit 41 35-52 % Mean Corpuscular Volume 86 80-99 FL Mean Corpuscular Hemoglobin 30 25-34 PG Mean Corpuscular Hemoglobin Concent 35 32-36 G/DL Red Cell Distribution Width 12.5 10.0-14.5 % Platelet Count 291 130-400 10^3/uL Mean Platelet Volume 10.4 7.4-10.4 FL Neutrophils (%) (Auto) 50 42-75 % Lymphocytes (%) (Auto) 43 12-44 % Monocytes (%) (Auto) 5 0-12 % Eosinophils (%) (Auto) 1 0-10 % Basophils (%) (Auto) 1 0-10 % Neutrophils # (Auto) 5.0 1.8-7.8 X 10^3 Lymphocytes # (Auto) 4.3 H 1.0-4.0 X 10^3 Monocytes # (Auto) 0.5 0.0-1.0 X 10^3 Eosinophils # (Auto) 0.1 0.0-0.3 10^3/uL Basophils # (Auto) 0.1 0.0-0.1 10^3/uL Urine Color YELLOW Urine Clarity CLEAR Urine pH 6 5-9 Urine Specific [place] 1.025 H 1.016-1.022 Urine Protein 2+ H NEGATIVE Urine Glucose (UA) NEGATIVE NEGATIVE Urine Ketones 2+ H NEGATIVE Urine Nitrite NEGATIVE NEGATIVE Urine Bilirubin NEGATIVE NEGATIVE Urine Urobilinogen 1 NORMAL MG/DL Urine Leukocyte Esterase 1+ H NEGATIVE Urine RBC (Auto) 1+ H NEGATIVE Urine RBC 0-2 /HPF Urine WBC 2-5 /HPF Urine Squamous Epithelial Cells 5-10 /HPF Urine Crystals NONE /LPF Urine Bacteria MODERATE H /HPF Urine Casts NONE /LPF Urine Mucus LARGE H /LPF Urine Culture Indicated YES Sodium Level 138 135-145 MMOL/L Potassium Level 3.2 L 3.6-5.0 MMOL/L Chloride Level 97 L 98-107 MMOL/L Carbon Dioxide Level 29 21-32 MMOL/L Anion Gap 12 5-14 MMOL/L Blood Urea Nitrogen 12 7-18 MG/DL Creatinine 0.79 0.60-1.30 MG/DL Estimat Glomerular Filtration Rate > 60 BUN/Creatinine Ratio 15 Glucose Level 97 70-105 MG/DL Calcium Level 9.6 8.5-10.1 MG/DL Corrected Calcium 9.3 8.5-10.1 MG/DL Total Bilirubin 0.4 0.1-1.0 MG/DL Aspartate Amino Transf (AST/SGOT) 31 5-34 U/L Alanine Aminotransferase (ALT/SGPT) 12 0-55 U/L Alkaline Phosphatase 42 40-136 U/L Total Protein 7.3 6.4-8.2 GM/DL Albumin 4.4 3.2-4.5 GM/DL Lipase 47 8-78 U/L My Orders Orders - JOEL STAFFORD MD Cbc With Automated Diff (11/28/18 18:12) Comprehensive Metabolic Panel (11/28/18 18:12) Lipase (11/28/18 18:12) Ua Culture If Indicated (11/28/18 18:12) Saline Lock/Iv-Start (11/28/18 18:12) Urine Culture (11/28/18 18:31) Saline Lock/Iv-Start (11/28/18 19:36) Ns Iv 1000 Ml (Sodium Chloride 0.9%) (11/28/18 19:36) Lactated Ringers (Lr 1000 Ml Iv Solution (11/28/18 19:36) Potassium Chloride (Tablet) (Klor Con Ta (11/28/18 19:45) Ondansetron Injection (Zofran Injectio (11/28/18 19:45) Cephalexin Capsule (Keflex Capsule) (11/28/18 19:45) Ondansetron Injection (Zofran Injectio (11/28/18 19:42) Medications Given in ED Vital Signs/I&O 11/28/18 11/28/18 11/28/18 18:10 19:27 20:26 Temp 98.5 98.5 Pulse 93 88 86 Resp 16 16 16 B/P (MAP) 149/94 (112) 132/92 (105) 117/91 (100) Pulse Ox 100 100 100 O2 Delivery Room Air Room Air Room Air 11/29/18 00:00 Intake Total 1000 ml Balance 1000 ml Blood Pressure Mean: 105 Progress Progress Note : Progress Note Patient was found to have hypokalemia and appeared dry on her workup. She was given a liter of LR and oral potassium replacement. She was treated for urinary tract infection. I recommended considering a gallbladder ultrasound. She will discuss imaging possibilities with Dr. Eldridge. Ultrasound is not available in the ER [facility]. Gallbladder ultrasound in 2017 was unremarkable. Hepatobiliary scan in 2014 was unremarkable. Nausea was treated with Zofran. Urinary tract infection treatment was started with Keflex. Departure Impression Primary Impression: Right upper quadrant pain Additional Impressions: Hypovolemia Hypokalemia Urinary tract infection Qualified Codes: N39.0 - Urinary tract infection, site not specified Disposition: HOME, SELF-CARE Condition: Improved Departure-Patient Inst. Decision time for Depature: 20:01 Referrals: DON ELDRIDGE MD (PCP/Family) Primary Care Physician Patient Instructions: Acute Abdomen (Belly Pain), Adult (DC), Urinary Tract Infection, Adult (DC) Add. Discharge Instructions: Drink plenty of clear liquids. Place a call to your primary care provider tomorrow to inquire about gallbladder ultrasonography if your pain does not improve. Complete your antibiotic as prescribed. Follow-up with your primary care provider on Monday to review urine culture results. Return to care if symptoms are worsening despite treatment. All discharge instructions reviewed with patient and/or family. Voiced understanding. Scripts Ondansetron (Ondansetron Odt) 4 Mg Tab.rapdis 4 MG SL Q4H PRN for NAUSEA/VOMITING, #10 TAB Prov: JOEL STAFFORD MD 11/28/18 Cephalexin (Keflex) 500 Mg Capsule 500 MG PO BID, #10 CAP Prov: JOEL STAFFORD MD 11/28/18 Copy Copies To 1: DON ELDRIDGE MD, JOSHUA T MD Nov 28, 2018 20:03
[2018-11-28 20:26] VITALS: BP 117/91
== END 2018-11-28 20:22 | disposition home or self-care (01) ==
LOC: EDUNIT# 18:08 → ER 18:09
DX: N39.0 Urinary tract infection, site not specified (principal); E87.6 Hypokalemia; E86.1 Hypovolemia; M06.9 Rheumatoid arthritis, unspecified; F90.9 Attention-deficit hyperactivity disorder, unspecified type; F98.8 Other specified behavioral and emotional disorders with onset usually occurring in childhood and adolescence; F41.9 Anxiety disorder, unspecified; F17.210 Nicotine dependence, cigarettes, uncomplicated; Z87.19 Personal history of other diseases of the digestive system; Z87.01 Personal history of pneumonia (recurrent); Z82.49 Family history of ischemic heart disease and other diseases of the circulatory system; Z80.6 Family history of leukemia
CPT/HCPCS: 36415; 80053; 81000; 83690; 85025; 87088

== ENCOUNTER → 2019-04-18 | Outpatient (CLI) | payer BC ==
[~2019-04-18] MED LIST changes: +ADAL40PE5; +INDA2.5T2; +ONDA4TAB11 SL
--- NOTE | 2019-04-18 14:56 | Diagnostic Imaging Report ---
INDICATION: Patient felt a lump in midline to the left sternal area. EXAM: Limited and focused ultrasound of the soft tissue area of the sternum in the region of concern. COMPARISON: None. FINDINGS AND IMPRESSION: There is no soft tissue abnormality or mass seen in the sternal region of concern. If there is continued concern for abnormality in this region, then CT scan would better evaluate. Dictated by: Dictated on workstation # [id number]
--- NOTE | 2019-04-18 17:22 | Diagnostic Imaging Report ---
PROCEDURE: US Bilateral lower extremity arterial. TECHNIQUE: Multiple real-time grayscale images are obtained through both lower extremity arterial systems with color Doppler imaging and color Doppler spectral analysis. INDICATION: Coagulation defect. FINDINGS: There are primarily triphasic waveforms throughout both lower extremity arterial systems with exception of biphasic waveforms in the bilateral dorsalis pedis arteries as well as the left posterior tibial artery. Velocities are fairly symmetric bilaterally. No velocity elevation or stenosis is seen. There is no occlusion. IMPRESSION: Unremarkable bilateral lower extremity arterial Doppler. Dictated by: Dictated on workstation # [id number]
== END ==
LOC: RAD 12:59
PROVIDERS: ATTEND Nurse Practitioner Family
DX: D68.9 Coagulation defect, unspecified (principal); R22.2 Localized swelling, mass and lump, trunk; R10.9 Unspecified abdominal pain; N64.59 Other signs and symptoms in breast
CPT/HCPCS: 76999; 93925

== ENCOUNTER → 2019-07-16 | Outpatient (CLI) | payer BC ==
--- NOTE | 2019-07-16 09:38 | Diagnostic Imaging Report ---
PROCEDURE: CT sinuses without contrast TECHNIQUE: Multiple contiguous axial images were obtained through the sinuses without the use of intravenous contrast. Coronal and sagittal reformations were then performed. Auto Exposure Controls were utilized during the CT exam to meet ALARA standards for radiation dose reduction. INDICATION: Frontal sinusitis. FINDINGS: The frontal sinus is hypoplastic. Only a small amount is aerated on the left aspect which appears clear. Ethmoid air cells are clear apart from minimal mucosal thickening involving the left anterior ethmoid air cell and right posterior ethmoid air cell. The sphenoid sinuses are well aerated and unremarkable. Bilateral maxillary sinuses are clear. The ostiomeatal complexes are patent. Very slight curvature to the nasal septum is seen, convex to the right in the upper portion and convex to left in the lower portion. The visualized mastoid air cells are well-aerated. IMPRESSION: No CT evidence of acute sinusitis. Dictated by: Dictated on workstation # [id number]
== END ==
LOC: RAD 08:36
PROVIDERS: ATTEND Nurse Practitioner Family
DX: J32.1 Chronic frontal sinusitis (principal)
CPT/HCPCS: 70486

== ENCOUNTER → 2019-10-22 | Outpatient (CLI) | payer BC | LOC: LAB 10:26 | PROVIDERS: ATTEND Nurse Practitioner | DX: R19.7 Diarrhea, unspecified (principal) | CPT/HCPCS: 36415; 82175; 82525; 83655; 83825; 84630 ==

== ENCOUNTER 2020-06-10 11:48 | Emergency (ER) | payer BC ==
[~2020-06-10 11:48] MED LIST changes: +TRM50T PO
[2020-06-10] MEDS ORDERED: ANTACID SUSP 30 ML UDC (MYLANTA) ONE (12:01)
[2020-06-10] MEDS ORDERED: LIDOCAINE 2% VISCOUS 15 ML UDC ONE (12:01)
[2020-06-10] MEDS ORDERED: KETOROLAC 30 MG/ML VIAL ONE (12:01)
[2020-06-10] MEDS ORDERED: NS IV 1000 ML 1,000 ML ONE (12:02)
[2020-06-10] MEDS ORDERED: POTASSIUM CL 10MEQ/50ML IVPB 50 ML IV ONE (13:13)
[2020-06-10] MEDS ORDERED: KCL 20 MEQ TAB (K-DUR) PO ONE (13:13)
[2020-06-10] MEDS ORDERED: NS IV 500 ML 500 ML ONE (13:13)
--- NOTE | 2020-06-11 13:42 | Diagnostic Imaging Report ---
NAME: Saniya Goldberg. : 1985. EXAMINATION: CT abdomen and pelvis with contrast on 06/10/2020. INDICATION: Chest pain and abdominal pain. TECHNIQUE: Axial imaging through the abdomen and pelvis was performed after the administration of intravenous contrast. COMPARISON: Correlation is made with the prior CT from 04/15/2019. FINDINGS: The lung bases are clear. No discrete liver mass is detected. The gallbladder is unremarkable. No biliary ductal dilatation is detected. The pancreas and spleen are unremarkable. No peripancreatic inflammatory change or fluid is detected. There is no adrenal mass. The kidneys are unremarkable. The aorta is non-aneurysmal. The small and large bowel loops are of normal caliber. There is no obstruction. No free fluid or fluid collection is detected. The appendix is visualized in the right lower quadrant and appears unremarkable. Calcification is identified in a bowel loop in the left pelvis. IMPRESSION: No acute feature is detected. Dictated by: Dictated on workstation # [id number]
[2020-06-11 16:51] LABS: CARBON DIOXIDE 27 MMOL/L (21-32); CHLORIDE 93 MMOL/L (98-107); POTASSIUM 2.7 MMOL/L (3.6-5.0); SODIUM 134 MMOL/L (135-145)
[2020-06-11 16:52] LABS: ALANINE AMINOTRANSFERASE 23 U/L (0-55); ALKALINE PHOSPHATASE 48 U/L (40-136); BILIRUBIN,TOTAL 0.4 MG/DL (0.1-1.0); BUN/CREATININE RATIO 10; CALCIUM 9.1 MG/DL (8.5-10.1); GFR ESTIMATED > 60; GLUCOSE 162 MG/DL (70-105); LIPASE 22 U/L (8-78); TOTAL PROTEIN 7.3 GM/DL (6.4-8.2)
[2020-06-11 16:53] LABS: BASOPHILS % (AUTO) 0 % (0-10); EOSINOPHILS # (AUTO) 0.2 10^3/uL (0.0-0.3); EOSINOPHILS % (AUTO) 2 % (0-10); HEMATOCRIT 35 % (35-52); HEMOGLOBIN 12.2 G/DL (11.5-16.0); LYMPHOCYTES # (AUTO) 3.1 X 10^3 (1.0-4.0); LYMPHOCYTES % (AUTO) 30 % (12-44); MEAN CORPUSCULAR HEMOGLOBIN 30 PG (25-34); MEAN CORPUSCULAR HGB CONC 35 G/DL (32-36); MEAN CORPUSCULAR VOLUME 85 FL (80-99); MEAN PLATELET VOLUME 10.5 FL (7.4-10.4); MONOCYTES # (AUTO) 0.5 X 10^3 (0.0-1.0); MONOCYTES % (AUTO) 5 % (0-12); NEUTROPHILS # (AUTO) 6.5 X 10^3 (1.8-7.8); NEUTROPHILS % (AUTO) 62 % (42-75); PLATELET COUNT 264 10^3/uL (130-400); RED CELL DISTRIBUTION WIDTH 12.1 % (10.0-14.5); WHITE BLOOD COUNT 10.4 10^3/uL (4.3-11.0)
[2020-06-11 16:54] LABS: CLARITY,URINE CLEAR; COLOR,URINE YELLOW; PH,URINE 6.5 (5-9)
[2020-06-11 16:55] LABS: BACTERIA,URINE NEGATIVE /HPF; BILIRUBIN,URINE NEGATIVE (NEGATIVE); GLUCOSE, URINE (UA) NEGATIVE (NEGATIVE); KETONES,URINE TRACE (NEGATIVE); LEUKOCYTE ESTERASE ,URINE NEGATIVE (NEGATIVE); NITRITE,URINE NEGATIVE (NEGATIVE); PROTEIN,URINE NEGATIVE (NEGATIVE)
== END 2020-06-10 14:24 | disposition home or self-care (01) ==
LOC: ER 11:48 → EDUNIT# 11:48 → ER 14:24
DX: R10.84 Generalized abdominal pain (principal); E87.6 Hypokalemia
CPT/HCPCS: 36415; 74177; 80053; 81000; 83690; 84484; 84703; 85025; 93005; 96361; 96374

== ENCOUNTER 2020-10-05 17:06 | Emergency (ER) | payer BC ==
[~2020-10-05] VITALS: Ht 154.8 cm; Wt 47.7 kg
--- NOTE | 2020-10-05 17:24 | ED General ---
General Stated Complaint: STOMACH PAIN Source of Information: Patient Exam Limitations: No Limitations History of Present Illness Date Seen by Provider: Oct 05, 2020 Time Seen by Provider: 17:22 Initial Comments ER with diffuse abdominal pain rated at 11 out of 10 since this morning. She has chronic diarrhea unchanged, she has some unknown autoimmune condition she states. She was formally on Humira and seemed to be better when she was on that but is no longer on it because it seemed to quit working after getting influenza last year. She is allergic to Plaquenil and has not tried methotrexate. She does not know what the autoimmune condition is. She follows with Anisha Stern. Timing/Duration: 1-2 Days Severity: Moderate Associated Systoms: Weakness Allergies and Home Medications Allergies Coded Allergies: hydroxychloroquine (Verified Allergy, Unknown, 10/05/20) Uncoded Allergies: WHOOPING COUGH VACCINE (Allergy, Unknown, 10/12/10) Home Medications Amoxicillin/Potassium Clav 1 Each Tablet, 1 EACH PO BID Prescribed by: MINE WING on 10/05/201822 Cephalexin 500 Mg Capsule, 500 MG PO BID Prescribed by: JOEL EGAN on 11/28/182002 Dextroamphetamine/Amphetamine 30 Mg Tablet, 30 MG PO BID, (Reported) Fluconazole 150 Mg Tablet, 150 MG PO DAILY PRN for yeast infection Prescribed by: MINE WING on 10/05/201822 Hydrocodone/Acetaminophen 1 Each Tablet, 1 TAB PO Q4-6HR Prescribed by: MINE WING on 10/05/201822 Ondansetron 4 Mg Tab.rapdis, 4 MG SL Q4H PRN for NAUSEA/VOMITING Prescribed by: JOEL EGAN on 11/28/182002 Potassium Chloride 10 Meq Tablet.er, 10 MEQ PO DAILY, (Reported) Prednisone 10 Mg Tab.ds.pk, 10 MG PO DAILY Take 6 tabs(60mg)daily,decrease by 1 tab(10MG)daily. Prescribed by: MINE WING on 10/05/201822 Spironolactone 50 Mg Tablet, 50 MG PO DAILY, (Reported) Tramadol HCl 50 Mg Tablet, 50 MG PO Q4H Prescribed by: APRIL HUANG on 11/13/17 1030 Patient Home Medication List Home Medication List Reviewed: Yes Review of Systems Review of Systems Constitutional: see HPI EENTM: see HPI Respiratory: no symptoms reported Cardiovascular: no symptoms reported Gastrointestinal: abdominal pain, diarrhea Genitourinary: no symptoms reported Musculoskeletal: no symptoms reported Skin: no symptoms reported Psychiatric/Neurological: No Symptoms Reported Hematologic/Lymphatic: No Symptoms Reported Past Ecxxohp-Wdxqju-Jzgehe Hx Patient Social History Alcohol Beverage of Choice: Beer Type Used: Cigarettes Recent Foreign Travel: No Contact w/Someone Who Travel: No Recent Hopitalizations: No Immunizations Up To Date Tetanus Booster (TDap): More than 5yrs PED Vaccines UTD: No Seasonal Allergies Seasonal Allergies: Yes Past Medical History Surgeries: Yes (INFECTION CUT OUT OF FINGER, EGD, wisdom teeth) Respiratory: Yes Pneumonia Currently Using CPAP: No Currently Using BIPAP: No Cardiac: Yes Chronic Edema/Swelling Neurological: No Reproductive Disorders: No Genitourinary: No Gastrointestinal: Yes (GASTRITIS, CHRONIC NAUSEA/VOMITING/DIARRHEA/ABDOMINAL PAIN) Chronic Diarrhea, Irritable Bowel Musculoskeletal: Yes Rheumatoid Arthritis Endocrine: Yes (recurrent hypokalemia) HEENT: No Cancer: No Psychosocial: Yes ADD/ADHD, Anxiety Integumentary: Yes (chronic dry skin) Eczema Blood Disorders: No Family Medical History Arthritis 19 MOTHER Asthma G8 SISTER Cardiovascular disease 19 FATHER 19 MOTHER Drug abuse G8 SISTER Hypercholesterolemia 19 FATHER 19 MOTHER Hypertension 19 FATHER 19 MOTHER Kidney disease 19 FATHER 19 MOTHER Myocardial infarction 19 MOTHER Neoplasm 19 FATHER (LEUKEMIA) Osteoporosis 19 MOTHER Psychosocial problem G8 SISTER GI Disease Physical Exam Vital Signs Vital Signs - First Documented 10/05/20 17:12 Temp 35.6 Pulse 91 Resp 18 B/P (MAP) 141/105 (117) Pulse Ox 100 O2 Delivery Room Air Capillary Refill : Height, Weight, BMI Height: 5'1.00" Weight: 102lbs. 2.0oz. 46.684988tl; 21.4 BMI Method:Stated General Appearance: No Apparent Distress, WD/WN, Thin, Other (Temporal wasting, very thin and nearly cachectic appearing. Abdomen is soft flat but tender to palpation.) Respiratory: No Accessory Muscle Use, No Respiratory Distress Cardiovascular: Regular Rate, Rhythm, Normal Peripheral Pulses Gastrointestinal: Normal Bowel Sounds, Non Tender, Soft Extremity: Normal Capillary Refill, Normal Inspection Neurologic/Psychiatric: Alert, Oriented x3 Skin: Normal Color, Warm/Dry, Other (Skin of both lower extremities starting at the ankles and extending distally is erythematous and scaly) Progress/Results/Core Measures Suspected Sepsis SIRS Temperature: Pulse: Respiratory Rate: Laboratory Tests 10/05/20 17:18: White Blood Count 9.6 Blood Pressure / Mean: Laboratory Tests 10/05/20 17:18: Creatinine 0.82, Platelet Count 378, Total Bilirubin 0.4 Results/Orders Lab Results Laboratory Tests Test 10/05/20 17:18 Range/Units White Blood Count 9.6 4.3-11.0 10^3/uL Red Blood Count 5.01 3.80-5.11 10^6/uL Hemoglobin 15.3 11.5-16.0 g/dL Hematocrit 44 35-52 % Mean Corpuscular Volume 88 80-99 fL Mean Corpuscular Hemoglobin 31 25-34 pg Mean Corpuscular Hemoglobin Concent 35 32-36 g/dL Red Cell Distribution Width 12.6 10.0-14.5 % Platelet Count 378 130-400 10^3/uL Mean Platelet Volume 9.7 9.0-12.2 fL Immature Granulocyte % (Auto) 0 % Neutrophils (%) (Auto) 66 42-75 % Lymphocytes (%) (Auto) 26 12-44 % Monocytes (%) (Auto) 6 0-12 % Eosinophils (%) (Auto) 1 0-10 % Basophils (%) (Auto) 1 0-10 % Neutrophils # (Auto) 6.3 1.8-7.8 10^3/uL Lymphocytes # (Auto) 2.5 1.0-4.0 10^3/uL Monocytes # (Auto) 0.6 0.0-1.0 10^3/uL Eosinophils # (Auto) 0.1 0.0-0.3 10^3/uL Basophils # (Auto) 0.1 0.0-0.1 10^3/uL Immature Granulocyte # (Auto) 0.0 0.0-0.1 10^3/uL Erythrocyte Sedimentation Rate 3 0-20 MM/HR Sodium Level 136 135-145 MMOL/L Potassium Level 3.7 3.6-5.0 MMOL/L Chloride Level 91 L 98-107 MMOL/L Carbon Dioxide Level 27 21-32 MMOL/L Anion Gap 18 H 5-14 MMOL/L Blood Urea Nitrogen 10 7-18 MG/DL Creatinine 0.82 0.60-1.30 MG/DL Estimat Glomerular Filtration Rate > 60 BUN/Creatinine Ratio 12 Glucose Level 114 H 70-105 MG/DL Calcium Level 9.6 8.5-10.1 MG/DL Corrected Calcium 9.4 8.5-10.1 MG/DL Total Bilirubin 0.4 0.1-1.0 MG/DL Aspartate Amino Transf (AST/SGOT) 39 H 5-34 U/L Alanine Aminotransferase (ALT/SGPT) 17 0-55 U/L Alkaline Phosphatase 42 40-136 U/L C-Reactive Protein High Sensitivity 0.02 0.00-0.50 MG/DL Total Protein 7.6 6.4-8.2 GM/DL Albumin 4.3 3.2-4.5 GM/DL My Orders Orders - MINE WING APRN Cbc With Automated Diff (10/05/20 17:21) Erythrocyte Sedimentation Rate (10/05/20 17:21) Hs C Reactive Protein (10/05/20 17:21) Ua Culture If Indicated (10/05/20 17:21) Drug Screen Stat (Urine) (10/05/20 17:21) Comprehensive Metabolic Panel (10/05/20 17:21) Ct Abdomen/Pelvis W (10/05/20 17:21) Ketorolac Injection (Toradol Injection) (10/05/20 17:30) Ns Iv 1000 Ml (Sodium Chloride 0.9%) (10/05/20 17:30) Iohexol Injection (Omnipaque 350 Mg/Ml 1 (10/05/20 17:45) Received Contrast (Hold Metformin- Contr (10/05/20 17:45) Ns (Ivpb) (Sodium Chloride 0.9% Ivpb Bag (10/05/20 17:45) Prednisone Tablet (Deltasone Tablet) (10/05/20 18:30) Rx-Hydrocodone/Apap 5-325 Mg (Rx-Vicodin (10/05/20 18:30) Amoxicillin/Clavulanate Tablet (Augmenti (10/05/20 18:30) Fentanyl Injection (Sublimaze Injection (10/05/20 18:45) Medications Given in ED Current Medications Medications Dose Ordered Sig/Perez Route Start Time Stop Time Status Last Admin Dose Admin Iohexol 100 ml ONCE ONCE IV 10/05/20 17:45 10/05/20 17:46 DC 10/05/20 17:59 100 ML Ketorolac Tromethamine 15 mg ONCE ONCE IVP 10/05/20 17:30 10/05/20 17:31 DC 10/05/20 17:33 15 MG Sodium Chloride 100 ml ONCE ONCE IV 10/05/20 17:45 10/05/20 17:46 DC 10/05/20 17:59 100 ML Vital Signs/I&O 10/05/20 17:12 Temp 35.6 Pulse 91 Resp 18 B/P (MAP) 141/105 (117) Pulse Ox 100 O2 Delivery Room Air Capillary Refill : Diagnostic Imaging Diagonstic Imaging: CT Comments NAME: PAULIE LOBO [facility] REC#: [id number] PT STATUS: REG ER : 1985 PHYSICIAN: MINE WING APRN ADMIT DATE: 10/05/20/ER Draft Date of Exam:10/05/20 CT ABDOMEN/PELVIS W PROCEDURE: CT abdomen and pelvis with contrast. TECHNIQUE: Multiple contiguous axial images were obtained through the abdomen and pelvis after administration of intravenous contrast. Auto Exposure Controls were utilized during the CT exam to meet ALARA standards for radiation dose reduction. All CT scans use one or more of the following dose optimizing techniques: automated exposure control, MA and/or KvP adjustment based on patient size and exam type or iterative reconstruction. INDICATION: Upper abdominal pain with nausea. COMPARISON: 06/10/2020. FINDINGS: Mild hepatomegaly with fatty liver change. No focal liver lesion. Gallbladder and bile ducts are normal. The pancreas and spleen are normal. The adrenal glands and kidneys are normal. There is normal enhancement of the abdominal vessels and organs following IV contrast. Aorta shows moderate atherosclerotic disease. No evidence of aneurysm or dissection. The stomach is not dilated. There are multiple fluid-filled loops of small bowel which are mildly dilated. There is no evidence of a transition zone. The bowel wall appears somewhat thickened along the terminal ileum. The colon does show gas present without significant stool. There is some thickening noted of the descending and sigmoid colon bowel wall. Bladder is not distended. There are no pelvic masses. There is no free air or free fluid. No intra-abdominal adenopathy of pathologic size. There are no blastic or lytic bony changes. IMPRESSION: 1. Abnormal-appearing small bowel and colon. Multiple mildly dilated loops of small bowel which are fluid-filled with question of possible thickening of the terminal ileum. Also thickening of the distal descending and sigmoid colon bowel wall. These findings would be concerned for possible enteritis or inflammatory bowel disease. 2. Mild hepatomegaly with fatty liver changes. Dictated on workstation # [id number] Dict: 10/05/201803 Trans: 10/05/201811 [facility] [phone] Interpreted by: RAFAEL MONSALVE MD Electronically signed by: Departure Impression Primary Impression: IBD (inflammatory bowel disease) Disposition: HOME, SELF-CARE Condition: Stable Departure-Patient Inst. Decision time for Depature: 18:19 Referrals: ELENA STERN DO (PCP) Primary Care Physician ANISHA STERN DNP (Family) Primary Care Physician Patient Instructions: Inflammatory Bowel Disease (DC) Add. Discharge Instructions: 1. Return to ER for any concerns 2. Medication as directed 3. Scripts Hydrocodone/Acetaminophen (Hydrocodone/Acetaminophen 5 MG/325 MG TAB) 1 Each Tablet 1 TAB PO Q4-6HR for Pain MDD 10 TABS for 7 Days, #10 TAB Prov: MINE WING APRN 10/05/20 Fluconazole (Diflucan) 150 Mg Tablet 150 MG PO DAILY PRN for yeast infection, #2 TAB Prov: MINE WING APRN 10/05/20 Amoxicillin/Potassium Clav (Augmentin 875-125 Tablet) 1 Each Tablet 1 EACH PO BID, #14 TAB 0 Refills Prov: MINE WING APRN 10/05/20 Prednisone (Prednisone) 10 Mg Tab.ds.pk 10 MG PO DAILY, #21 EA Take 6 tabs(60mg)daily,decrease by 1 tab(10MG)daily. Prov: MINE WING APRN 10/05/20 Copy Copies To 1: ELENA STERN PETER J APRN Oct 05, 2020 17:24
[2020-10-05] MEDS ORDERED: NS IV 1000 ML 1,000 ML IV SCH (17:30)
[2020-10-05] MEDS ORDERED: KETOROLAC 30 MG/ML VIAL IVP ONE (17:30)
[2020-10-05 17:41] LABS: BASOPHILS # (AUTO) 0.1 10^3/uL (0.0-0.1); BASOPHILS % (AUTO) 1 % (0-10); EOSINOPHILS # (AUTO) 0.1 10^3/uL (0.0-0.3); EOSINOPHILS % (AUTO) 1 % (0-10); HEMATOCRIT 44 % (35-52); HEMOGLOBIN 15.3 g/dL (11.5-16.0); LYMPHOCYTES # (AUTO) 2.5 10^3/uL (1.0-4.0); LYMPHOCYTES % (AUTO) 26 % (12-44); MEAN CORPUSCULAR HEMOGLOBIN 31 pg (25-34); MEAN CORPUSCULAR HGB CONC 35 g/dL (32-36); MEAN CORPUSCULAR VOLUME 88 fL (80-99); MEAN PLATELET VOLUME 9.7 fL (9.0-12.2); MONOCYTES # (AUTO) 0.6 10^3/uL (0.0-1.0); MONOCYTES % (AUTO) 6 % (0-12); NEUTROPHILS # (AUTO) 6.3 10^3/uL (1.8-7.8); NEUTROPHILS % (AUTO) 66 % (42-75); PLATELET COUNT 378 10^3/uL (130-400); WHITE BLOOD COUNT 9.6 10^3/uL (4.3-11.0)
[2020-10-05] MEDS ORDERED: IOHEXOL 350 MG/ML 100 ML (OMNIPAQUE 350) VIAL IV ONE (17:45)
[2020-10-05] MEDS ORDERED: NS 100 ML (IVPB) BAG IV ONE (17:45)
[2020-10-05] MEDS ORDERED: HOLD METFORMIN - RECEIVED CONTRAST 20 ML VIAL IV SCH (17:45)
[2020-10-05 17:54] LABS: ALBUMIN 4.3 GM/DL (3.2-4.5); CHLORIDE 91 MMOL/L (98-107); POTASSIUM 3.7 MMOL/L (3.6-5.0); SODIUM 136 MMOL/L (135-145)
[2020-10-05 17:55] LABS: CALCIUM 9.6 MG/DL (8.5-10.1)
[2020-10-05 17:56] LABS: GLUCOSE 114 MG/DL (70-105)
[2020-10-05 17:57] LABS: TOTAL PROTEIN 7.6 GM/DL (6.4-8.2)
[2020-10-05 17:58] LABS: BILIRUBIN,TOTAL 0.4 MG/DL (0.1-1.0); CARBON DIOXIDE 27 MMOL/L (21-32)
[2020-10-05 18:00] LABS: ALKALINE PHOSPHATASE 42 U/L (40-136); CREATININE SERUM 0.82 MG/DL (0.60-1.30); GFR ESTIMATED > 60
[2020-10-05 18:01] LABS: BUN/CREATININE RATIO 12
[2020-10-05 18:03] LABS: ALANINE AMINOTRANSFERASE 17 U/L (0-55)
--- NOTE | 2020-10-05 18:14 | Diagnostic Imaging Report ---
PROCEDURE: CT abdomen and pelvis with contrast. TECHNIQUE: Multiple contiguous axial images were obtained through the abdomen and pelvis after administration of intravenous contrast. Auto Exposure Controls were utilized during the CT exam to meet ALARA standards for radiation dose reduction. All CT scans use one or more of the following dose optimizing techniques: automated exposure control, MA and/or KvP adjustment based on patient size and exam type or iterative reconstruction. INDICATION: Upper abdominal pain with nausea. COMPARISON: 06/10/2020. FINDINGS: Mild hepatomegaly with fatty liver change. No focal liver lesion. Gallbladder and bile ducts are normal. The pancreas and spleen are normal. The adrenal glands and kidneys are normal. There is normal enhancement of the abdominal vessels and organs following IV contrast. Aorta shows moderate atherosclerotic disease. No evidence of aneurysm or dissection. The stomach is not dilated. There are multiple fluid-filled loops of small bowel which are mildly dilated. There is no evidence of a transition zone. The bowel wall appears somewhat thickened along the terminal ileum. The colon does show gas present without significant stool. There is some thickening noted of the descending and sigmoid colon bowel wall. Bladder is not distended. There are no pelvic masses. There is no free air or free fluid. No intra-abdominal adenopathy of pathologic size. There are no blastic or lytic bony changes. IMPRESSION: 1. Abnormal-appearing small bowel and colon. Multiple mildly dilated loops of small bowel which are fluid-filled with question of possible thickening of the terminal ileum. Also thickening of the distal descending and sigmoid colon bowel wall. These findings would be concerned for possible enteritis or inflammatory bowel disease. 2. Mild hepatomegaly with fatty liver changes. Dictated by: Dictated on workstation # [id number]
[2020-10-05 18:19] LABS: ERYTHROCYTE SEDIMENTATION RATE 3 MM/HR (0-20)
[2020-10-05] MEDS ORDERED: HYDR-4226 PO (18:23)
[2020-10-05] MEDS ORDERED: PRED10TA22 PO (18:23)
[2020-10-05] MEDS ORDERED: FLUC150T PO (18:23)
[2020-10-05] MEDS ORDERED: AMOX-358 PO (18:23)
[2020-10-05] MEDS ORDERED: RX-HYDROCODONE/APAP 5/325 MG #4 TAB PK PO PRN (18:30)
[2020-10-05] MEDS ORDERED: AUGMENTIN 875 MG TAB (AMOXICILLIN/CLAVULANATE) PO SCH (18:30)
[2020-10-05] MEDS ORDERED: predniSONE 20 MG TAB PO ONE (18:30)
[2020-10-05] MEDS ORDERED: fentaNYL INJECTION 100 MCG/2 ML AMP IVP ONE (18:45)
[2020-10-05 18:59] VITALS: BP 132/96
[2020-10-05 19:02] LABS: BILIRUBIN,URINE NEGATIVE (NEGATIVE); CLARITY,URINE CLEAR; COLOR,URINE YELLOW; GLUCOSE, URINE (UA) NEGATIVE (NEGATIVE); KETONES,URINE NEGATIVE (NEGATIVE); LEUKOCYTE ESTERASE ,URINE NEGATIVE (NEGATIVE); NITRITE,URINE NEGATIVE (NEGATIVE); PROTEIN,URINE TRACE (NEGATIVE)
[2020-10-05 19:25] LABS: BACTERIA,URINE NEGATIVE /HPF; RBC,URINE 0-2 /HPF; SQUAMOUS EPITHELIAL CELL,UR 0-2 /HPF
[2020-10-05 19:28] LABS: BENZODIAZEPINES SCREEN URINE NEGATIVE (NEGATIVE)
[2020-10-05 19:29] LABS: AMPHETAMINE SCREEN, URINE POSITIVE (NEGATIVE); BARBITURATE SCREEN URINE NEGATIVE (NEGATIVE); CANNABINOID SCREEN, URINE NEGATIVE (NEGATIVE); COCAINE SCREEN URINE NEGATIVE (NEGATIVE); METHADONE STAT NEGATIVE (NEGATIVE); METHAMPHETAMINE SCREEN URINE S POSITIVE (NEGATIVE); OPIATE SCREEN URINE NEGATIVE (NEGATIVE); OXYCODONE STAT NEGATIVE (NEGATIVE); PROPOXYPHENE STAT NEGATIVE (NEGATIVE); TRICYCLIC ANTIDEPRESSANTS SCRE NEGATIVE (NEGATIVE)
== END 2020-10-05 18:58 | disposition home or self-care (01) ==
LOC: EDUNIT# 17:06 → ER 17:08
DX: K58.0 Irritable bowel syndrome with diarrhea (principal); F90.9 Attention-deficit hyperactivity disorder, unspecified type; Z88.8 Allergy status to other drugs, medicaments and biological substances; Z82.49 Family history of ischemic heart disease and other diseases of the circulatory system; Z82.61 Family history of arthritis; Z80.6 Family history of leukemia; Z79.52 Long term (current) use of systemic steroids
CPT/HCPCS: 36415; 74177; 80053; 80306; 81000; 85025; 85652; 86141

== ENCOUNTER → 2020-12-08 | Outpatient (CLI) | payer BC ==
[~2020-12-08] MED LIST changes: +AMOX-358 PO; +FLUC150T PO; +HYDR-4226 PO; +PRED10TA22 PO
--- NOTE | 2020-12-08 13:54 | Diagnostic Imaging Report ---
PROCEDURE: CT sinuses without contrast TECHNIQUE: Multiple contiguous axial images were obtained through the sinuses without the use of intravenous contrast. Coronal and sagittal reformations were then performed. Auto Exposure Controls were utilized during the CT exam to meet ALARA standards for radiation dose reduction. INDICATION: Chronic sinusitis. COMPARISON: 07/16/2019 FINDINGS: The frontal sinuses are hypoplastic though clear. Minimal mucosal thickening within a posterior right ethmoidal air cell, stable from the prior examination. Otherwise, the ethmoid air cells are clear. The sphenoid sinuses are clear. The maxillary sinuses are clear. Visualized portions of the mastoid air cells and middle ear cavities are clear. The bilateral ostiomeatal complexes are widely patent. Minimal apex right curvature of the nasal septum. No significant mucoperiosteal thickening of the maxillary sinus howard. No temporomandibular joint dislocation. No acute facial fracture. Fossa of Rosenmuller are patent. Parapharyngeal fat is symmetric and well-maintained. The orbits are unremarkable. No intracranial midline shift within the limits of the exam. IMPRESSION: Minimal mucosal thickening involving a posterior right ethmoidal air cell appearing unchanged since 2019. Otherwise, the paranasal sinuses are clear. No acute facial fracture. Dictated by: Dictated on workstation # [id number]
== END ==
LOC: RAD 13:15
PROVIDERS: ATTEND Otolaryngology Otolaryngology/Facial Plastic Surgery
DX: J32.9 Chronic sinusitis, unspecified (principal)
CPT/HCPCS: 70486

== ENCOUNTER → 2021-03-04 | Outpatient (CLI) | payer BC ==
[2021-03-04 14:04] LABS: BASOPHILS # (AUTO) 0.1 10^3/uL (0.0-0.1); BASOPHILS % (AUTO) 1 % (0-10); EOSINOPHILS # (AUTO) 0.3 10^3/uL (0.0-0.3); EOSINOPHILS % (AUTO) 2 % (0-10); HEMATOCRIT 35 % (35-52); HEMOGLOBIN 12.1 g/dL (11.5-16.0); LYMPHOCYTES # (AUTO) 2.5 10^3/uL (1.0-4.0); LYMPHOCYTES % (AUTO) 19 % (12-44); MEAN CORPUSCULAR HEMOGLOBIN 30 pg (25-34); MEAN CORPUSCULAR HGB CONC 35 g/dL (32-36); MEAN CORPUSCULAR VOLUME 87 fL (80-99); MEAN PLATELET VOLUME 9.4 fL (9.0-12.2); MONOCYTES # (AUTO) 0.7 10^3/uL (0.0-1.0); MONOCYTES % (AUTO) 6 % (0-12); NEUTROPHILS # (AUTO) 9.5 10^3/uL (1.8-7.8); NEUTROPHILS % (AUTO) 72 % (42-75); PLATELET COUNT 338 10^3/uL (130-400); WHITE BLOOD COUNT 13.1 10^3/uL (4.3-11.0)
--- NOTE | 2021-03-04 14:20 | Diagnostic Imaging Report ---
EXAMINATION: CT abdomen and pelvis without contrast. TECHNIQUE: Multiple contiguous axial images were obtained through the abdomen and pelvis without the use of intravenous contrast. All CT scans use one or more of the following dose optimizing techniques: automated exposure control, MA and/or KvP adjustment based on patient size and exam type or iterative reconstruction. HISTORY: Flank pain. COMPARISON: CT abdomen/pelvis 10/05/2020. FINDINGS: Lung bases: The lung bases are clear. Solid organs: Diffuse hypoattenuation of the liver, compatible with hepatic steatosis. The gallbladder is normal. There is no biliary ductal dilation. Pancreas is normal. Spleen is normal. Adrenal glands are normal. The kidneys are normal without visualized calculus or hydronephrosis. Bowel: The stomach and small bowel are normal without obstruction. The colon and appendix are normal. Peritoneum: There is no intraperitoneal free fluid or free air. No suspicious lymphadenopathy. Vasculature: Calcification of the aorta without aneurysm. Musculoskeletal: No suspicious osseous lesion or compression fracture. Pelvis: The uterus and adnexa are normal. The urinary bladder is normal. IMPRESSION: 1. No visualized renal calculus or hydronephrosis. 2. No other acute abnormality in the abdomen or pelvis. 3. Hepatic steatosis. Dictated by: Dictated on workstation # [id number]
[2021-03-04 14:28] LABS: ALBUMIN 3.6 GM/DL (3.2-4.5); CHLORIDE 92 MMOL/L (98-107); POTASSIUM 3.7 MMOL/L (3.6-5.0); SODIUM 134 MMOL/L (135-145)
[2021-03-04 14:30] LABS: CALCIUM 9.1 MG/DL (8.5-10.1)
[2021-03-04 14:31] LABS: GLUCOSE 106 MG/DL (70-105); TOTAL PROTEIN 6.7 GM/DL (6.4-8.2)
[2021-03-04 14:32] LABS: CARBON DIOXIDE 27 MMOL/L (21-32)
[2021-03-04 14:33] LABS: BILIRUBIN,TOTAL 0.8 MG/DL (0.1-1.0)
[2021-03-04 14:34] LABS: ALKALINE PHOSPHATASE 74 U/L (40-136); CREATININE SERUM 0.75 MG/DL (0.60-1.30); GFR ESTIMATED > 60
[2021-03-04 14:35] LABS: BUN/CREATININE RATIO 9
[2021-03-04 14:37] LABS: ALANINE AMINOTRANSFERASE 60 U/L (0-55)
[2021-03-04 14:43] LABS: ERYTHROCYTE SEDIMENTATION RATE 20 MM/HR (0-20)
[2021-03-04 16:49] LABS: AMYLASE 32 U/L (25-125)
[2021-03-04 16:57] LABS: LIPASE 31 U/L (8-78)
== END ==
LOC: RAD 14:00
PROVIDERS: ATTEND Nurse Practitioner Family
DX: K76.0 Fatty (change of) liver, not elsewhere classified (principal); R31.0 Gross hematuria
CPT/HCPCS: 36415; 74176; 80053; 82150; 83690; 85025; 85652

== ENCOUNTER 2021-10-20 09:13 | Outpatient (RCR) | payer OTHER ==
[~2021-10-20] VITALS: Ht 154.9 cm; Wt 52.3 kg
[~2021-10-20 09:13] MED LIST changes: -INDA2.5T2; +INDA2.5T2 PO
[2021-10-20 09:22] VITALS: BP 116/78
[2021-10-20] MEDS ORDERED: POTA10CA43 PO (09:29)
[2021-10-20] MEDS ORDERED: DEXT10TA9 PO ×2 (09:29)
[2021-10-20 10:03] LABS: BASOPHILS # (AUTO) 0.1 10^3/uL (0.0-0.1); BASOPHILS % (AUTO) 1 % (0-10); EOSINOPHILS # (AUTO) 0.5 10^3/uL (0.0-0.3); EOSINOPHILS % (AUTO) 6 % (0-10); HEMATOCRIT 49 % (35-52); HEMOGLOBIN 16.1 g/dL (11.5-16.0); LYMPHOCYTES # (AUTO) 2.5 10^3/uL (1.0-4.0); LYMPHOCYTES % (AUTO) 33 % (12-44); MEAN CORPUSCULAR HEMOGLOBIN 29 pg (25-34); MEAN CORPUSCULAR HGB CONC 33 g/dL (32-36); MEAN CORPUSCULAR VOLUME 87 fL (80-99); MEAN PLATELET VOLUME 10.4 fL (9.0-12.2); MONOCYTES # (AUTO) 0.5 10^3/uL (0.0-1.0); MONOCYTES % (AUTO) 6 % (0-12); NEUTROPHILS # (AUTO) 4.2 10^3/uL (1.8-7.8); NEUTROPHILS % (AUTO) 54 % (42-75); PLATELET COUNT 361 10^3/uL (130-400); WHITE BLOOD COUNT 7.7 10^3/uL (4.3-11.0)
[2021-10-20 10:25] LABS: CALCIUM 10.4 MG/DL (8.5-10.1); CREATININE SERUM 0.95 MG/DL (0.60-1.30); POTASSIUM 3.8 MMOL/L (3.6-5.0)
== END 2021-10-22 ==
LOC: PREOP 09:13 → EDSTATUS 10-21 09:30 → PREOP 10-22 14:11
PROVIDERS: ATTEND Otolaryngology Otolaryngology/Facial Plastic Surgery
DX: Z01.812 Encounter for preprocedural laboratory examination (principal); J32.9 Chronic sinusitis, unspecified; J34.3 Hypertrophy of nasal turbinates
CPT/HCPCS: 36415; 80048; 85025; 87081

== ENCOUNTER → 2021-10-21 | Outpatient (CLI) | payer OTHER ==
[~2021-10-21] MED LIST changes: +DEXT10TA9 PO; +POTA10CA43 PO
--- NOTE | 2021-10-21 17:53 | Diagnostic Imaging Report ---
INDICATION: Sinus infection for two years. Antibiotics not working. No prior surgery. EXAMINATION: CT sinuses, 10/21/2021. All CT scans use one or more of the following dose optimizing techniques: automated exposure control, MA and/or KvP adjustment based on patient size and exam type or iterative reconstruction. COMPARISON: 12/08/2020. FINDINGS: There are areas of mild mucosal thickening within the ethmoid air cells similar to the previous examination. The remaining sinuses appear unremarkable. There are no air-fluid levels. There are no erosive or destructive osseous changes. The visualized mastoid air cells appear clear. Both orbits appear intact and unremarkable with the post-septal spaces normal in appearance. IMPRESSION: Mild chronic appearing mucosal thickening within the ethmoid air cells. Otherwise, no gross abnormalities with no acute changes of sinusitis appreciated. Dictated by: Dictated on workstation # [id number]
== END ==
LOC: RAD 17:15
PROVIDERS: ATTEND Otolaryngology Otolaryngology/Facial Plastic Surgery
DX: J32.9 Chronic sinusitis, unspecified (principal); J34.89 Other specified disorders of nose and nasal sinuses
CPT/HCPCS: 70486

== ENCOUNTER 2022-03-04 19:04 | Emergency (ER) | payer OTHER ==
[~2022-03-04] VITALS: Ht 156 cm; Wt 48.5 kg
[2022-03-04] MEDS ORDERED: CLINDAMYCIN 600 MG/50 ML IVPB 50 ML IV ONE (19:30)
--- NOTE | 2022-03-04 19:31 | ED Integumentary General ---
General Stated Complaint: RASH ON FACE Source: patient Exam Limitations: no limitations History of Present Illness Date Seen by Provider: March 04, 2022 Time Seen by Provider: 19:28 Initial Comments Patient is a 36-year-old female with a history of Crohn's and RA who presents ED with a red rash on the face. Symptoms started few days ago with very small bump s. This rash progressed to got worse over the past 24 hours with redness and swelling to the cheeks with red bumps to the eyelashes and anterior neck. No history of similar type rash. She states has had redness to the face in the past and was checked for lupus but was negative. But denies having a rash to this extent to the face. She took 1 dose of Keflex prescribed by her primary care physician today. Not currently on any immunosuppressants. History of skin infections from strep and staph. She is concerned for infectious etiology. Denies of any purulent drainage, fever, chills, severe joint pain, headache, dizziness. She states she has been having some joint pain over the past 2 months without any increasing pain over the past few days. She denies joint swelling, severe abdominal pain, chest pain, cough Allergies and Home Medications Allergies Coded Allergies: Pertussis Vaccines (Verified Allergy, Unknown, childhood rx, 10/20/21) Sulfa (Sulfonamide Antibiotics) (Verified Allergy, Unknown, 10/20/21) hydroxychloroquine (Verified Allergy, Unknown, 10/05/20) Patient Home Medication List Home Medication List Reviewed: Yes Dextroamphetamine/Amphetamine (Adderall 10 mg Tablet) 10 Mg Tablet, 20 MG PO DAILY, (Reported) Entered as Reported by: BANDAR CERRATO on 10/20/21928 Dextroamphetamine/Amphetamine (Adderall 10 mg Tablet) 10 Mg Tablet, 10 MG PO D AILY@1500, (Reported) Entered as Reported by: BANDAR CERRATO on 10/20/21928 Indapamide (Indapamide) 2.5 Mg Tablet, 2.5 MG PO DAILY, (Reported) Entered as Reported by: MARKY HUA on 11/28/18 184 Potassium Chloride (Potassium Chloride) 10 Meq Capsule.er, 10 MEQ PO DAILY, (Reported) Entered as Reported by: BANDAR CERRATO on 10/20/21928 Spironolactone (Spironolactone) 50 Mg Tablet, 50 MG PO DAILY, (Reported) Entered as Reported by: DAISY AGUILAR on 07/18/152033 Review of Systems Review of Systems Constitutional: No chills, No diaphoresis, No malaise EENTM: No hearing loss, No double vision, No eye pain, No tearing, No vision loss Respiratory: No cough, No dyspnea on exertion, No hemoptysis, No orthopnea, No short of breath, No wheezing Cardiovascular: No chest pain, No edema Gastrointestinal: No RUQ, No abdominal pain, No diarrhea, No nausea, No vomiting Genitourinary: No decreased output, No discharge Musculoskeletal: No back pain; joint pain; No muscle pain, No muscle stiffness Skin: change in color, rash All Other Systems Reviewed Negative Unless Noted: Yes Past Jgftzpo-Acjvhg-Yysson Hx Immunizations Up To Date Tetanus Booster (TDap): More than 5yrs PED Vaccines UTD: No Seasonal Allergies Seasonal Allergies: Yes Past Medical History Surgeries: Yes (INFECTION CUT OUT OF FINGER) Respiratory: No Pneumonia Currently Using CPAP: No Currently Using BIPAP: No Cardiac: No (possible POTS syndrome, ) Chronic Edema/Swelling Neurological: No ([place] disease) Reproductive Disorders: No Genitourinary: No Gastrointestinal: Yes (GASTRITIS, CHRONIC NAUSEA/VOMITING/DIARRHEA/ABDOMINAL PAIN) Crohns Disease, Chronic Diarrhea, Irritable Bowel Musculoskeletal: Yes Rheumatoid Arthritis Endocrine: No HEENT: No Cancer: No Psychosocial: No ADD/ADHD, Anxiety Integumentary: Yes (chronic dry skin) Eczema Blood Disorders: No Family Medical History Arthritis 19 MOTHER Asthma G8 SISTER Cardiovascular disease 19 FATHER 19 MOTHER Drug abuse G8 SISTER Hypercholesterolemia 19 FATHER 19 MOTHER Hypertension 19 FATHER 19 MOTHER Kidney disease 19 FATHER 19 MOTHER Myocardial infarction 19 MOTHER Neoplasm 19 FATHER (LEUKEMIA) Osteoporosis 19 MOTHER Psychosocial problem G8 SISTER GI Disease Physical Exam Vital Signs Vital Signs - First Documented 03/04/22 19:20 Temp 36.3 Pulse 102 Resp 20 B/P (MAP) 134/92 (106) Pulse Ox 99 Capillary Refill : General Appearance: No WD/WN, No no apparent distress HEENT: PERRL/EOMI, normal ENT inspection, TMs normal Neck: non-tender, full range of motion, supple Cardiovascular: regular rate, rhythm, no edema, no gallop, no JVD Respiratory: chest non-tender, lungs clear, normal breath sounds, no respiratory distress, no accessory muscle use Gastrointestinal: normal bowel sounds, non tender, soft, no organomegaly Back: normal inspection, no CVA tenderness Extremities: normal range of motion, non-tender, normal inspection, no pedal edema, no calf tenderness Skin: other (Erythematous edematous macular papular rash to the face. No pustules, vesicles. Very minimal crusty) Progress/Results/Core Measures Results/Orders Lab Results Laboratory Tests Test 03/04/22 19:34 Range/Units White Blood Count 6.4 4.3-11.0 10^3/uL Red Blood Count 5.15 H 3.80-5.11 10^6/uL Hemoglobin 15.0 11.5-16.0 g/dL Hematocrit 44 35-52 % Mean Corpuscular Volume 85 80-99 fL Mean Corpuscular Hemoglobin 29 25-34 pg Mean Corpuscular Hemoglobin Concent 34 32-36 g/dL Red Cell Distribution Width 13.5 10.0-14.5 % Platelet Count 327 130-400 10^3/uL Mean Platelet Volume 9.9 9.0-12.2 fL Immature Granulocyte % (Auto) 0 % Neutrophils (%) (Auto) 40 L 42-75 % Lymphocytes (%) (Auto) 47 H 12-44 % Monocytes (%) (Auto) 6 0-12 % Eosinophils (%) (Auto) 5 0-10 % Basophils (%) (Auto) 1 0-10 % Neutrophils # (Auto) 2.6 1.8-7.8 10^3/uL Lymphocytes # (Auto) 3.0 1.0-4.0 10^3/uL Monocytes # (Auto) 0.4 0.0-1.0 10^3/uL Eosinophils # (Auto) 0.3 0.0-0.3 10^3/uL Basophils # (Auto) 0.1 0.0-0.1 10^3/uL Immature Granulocyte # (Auto) 0.0 0.0-0.1 10^3/uL Erythrocyte Sedimentation Rate 16 0-20 MM/HR Sodium Level 141 135-145 MMOL/L Potassium Level 3.1 L 3.6-5.0 MMOL/L Chloride Level 94 L 98-107 MMOL/L Carbon Dioxide Level 28 21-32 MMOL/L Anion Gap 19 H 5-14 MMOL/L Blood Urea Nitrogen 9 7-18 MG/DL Creatinine 0.79 0.60-1.30 MG/DL Estimat Glomerular Filtration Rate 99 BUN/Creatinine Ratio 11 Glucose Level 126 H 70-105 MG/DL Calcium Level 10.0 8.5-10.1 MG/DL Corrected Calcium 9.7 8.5-10.1 MG/DL Total Bilirubin 0.4 0.1-1.0 MG/DL Aspartate Amino Transf (AST/SGOT) 36 H 5-34 U/L Alanine Aminotransferase (ALT/SGPT) 56 H 0-55 U/L Alkaline Phosphatase 102 40-136 U/L C-Reactive Protein High Sensitivity 0.56 H 0.00-0.50 MG/DL Total Protein 7.8 6.4-8.2 GM/DL Albumin 4.4 3.2-4.5 GM/DL My Orders Orders - ANEUDY OBANDO Cbc With Automated Diff (03/04/22 19:26) Comprehensive Metabolic Panel (03/04/22 19:26) Hs C Reactive Protein (03/04/22 19:26) Erythrocyte Sedimentation Rate (03/04/22 19:26) Clindamycin 600 Mg/50 Ml Ivpb (Cleocin P (03/04/22 19:30) Ns Iv 1000 Ml (Sodium Chloride 0.9%) (03/04/22 20:15) Potassium Chloride (Tablet) (K Dur Table (03/04/22 20:15) Ns Iv 1000 Ml (Sodium Chloride 0.9%) (03/04/22 20:18) Potassium Chloride (Tablet) (K Dur Table (03/04/22 20:18) Medications Given in ED Vital Signs/I&O 03/04/22 03/04/22 19:20 21:00 Temp 36.3 Pulse 102 85 Resp 20 18 B/P (MAP) 134/92 (106) 114/74 Pulse Ox 99 100 Departure Communication (PCP) Patient presents ED with a rash to her face. History of RA and Crohn's. No history of lupus. She states she has had a similar type rash but not to this extent. She does have well demarcated erythema with some erythematous papules around the neck and chin. Possible infectious etiology versus inflammatory. Lab work was drawn. Slight elevated liver enzymes . patient Was given IV clindamycin. She did take 1 dose of Keflex this morning. Normal white blood count normal ESR. Slight elevated liver enzymes. Potassium 3.1. Was given oral potassium. Chloride 93 was given a liter of fluid. She states she felt little dehydrated. She is afebrile. Seems the rash appears to be improving here. Likely more infectious but cannot rule out inflammatory. More concern for infectious potential erysipelas and will continue with antibiotics. Not able to perform a swab here due to no drainage. If no improvement with antibiotics may consider other etiologies. Such as inflammatory versus rosacea. Does not appear to be fungal. Return precaution were discussed. Impression Primary Impression: Rash Disposition: 01 HOME, SELF-CARE Condition: Stable Departure-Patient Inst. Decision time for Depature: 20:36 Referrals: ELENA POON DO (PCP) Primary Care Physician ANY POON DNP (Family) Primary Care Physician Patient Instructions: Skin Rash (DC) Add. Discharge Instructions: If no improvement of the rash recommend follow-up with your primary care physician to discuss further possible treatment ANEUDY OBANDO March 04, 2022 19:31
[2022-03-04 19:37] LABS: BASOPHILS # (AUTO) 0.1 10^3/uL (0.0-0.1); BASOPHILS % (AUTO) 1 % (0-10); EOSINOPHILS # (AUTO) 0.3 10^3/uL (0.0-0.3); EOSINOPHILS % (AUTO) 5 % (0-10); HEMATOCRIT 44 % (35-52); LYMPHOCYTES % (AUTO) 47 % (12-44); MEAN CORPUSCULAR HEMOGLOBIN 29 pg (25-34); MEAN CORPUSCULAR HGB CONC 34 g/dL (32-36); MEAN CORPUSCULAR VOLUME 85 fL (80-99); MEAN PLATELET VOLUME 9.9 fL (9.0-12.2); MONOCYTES # (AUTO) 0.4 10^3/uL (0.0-1.0); MONOCYTES % (AUTO) 6 % (0-12); NEUTROPHILS # (AUTO) 2.6 10^3/uL (1.8-7.8); NEUTROPHILS % (AUTO) 40 % (42-75); PLATELET COUNT 327 10^3/uL (130-400); WHITE BLOOD COUNT 6.4 10^3/uL (4.3-11.0)
[2022-03-04 19:56] LABS: ERYTHROCYTE SEDIMENTATION RATE 16 MM/HR (0-20)
[2022-03-04 19:57] LABS: ALBUMIN 4.4 GM/DL (3.2-4.5); BILIRUBIN,TOTAL 0.4 MG/DL (0.1-1.0); CREATININE SERUM 0.79 MG/DL (0.60-1.30); TOTAL PROTEIN 7.8 GM/DL (6.4-8.2)
[2022-03-04 20:08] LABS: POTASSIUM 3.1 MMOL/L (3.6-5.0)
[2022-03-04] MEDS ORDERED: NS IV 1000 ML 1,000 ML IV STA (20:15)
[2022-03-04] MEDS ORDERED: KCL 20 MEQ TAB (K-DUR) PO ONE ×2 (20:15→20:18)
[2022-03-04] MEDS ORDERED: NS IV 1000 ML 1,000 ML ONE (20:18)
[2022-03-04 21:00] VITALS: BP 114/74
== END 2022-03-04 21:03 | disposition home or self-care (01) ==
LOC: EDUNIT# 19:04 → ER 19:07
DX: R21 Rash and other nonspecific skin eruption (principal)
CPT/HCPCS: 36415; 80053; 85025; 85652; 86141; 99283

== ENCOUNTER 2023-01-31 05:34 | Outpatient (CLI) | payer OTHER ==
[~2023-01-31] VITALS: Ht 156.2 cm; Wt 50.8 kg
[~2023-01-31 05:34] MED LIST changes: -POTA10CA43 PO; +POTA10CA44 PO
== END 2023-01-31 14:18 ==
LOC: PREOP 05:34
PROVIDERS: ATTEND Surgery
DX: Z01.818 Encounter for other preprocedural examination (principal); M79.81 Nontraumatic hematoma of soft tissue

== ENCOUNTER 2023-02-02 10:19 | Day surgery (SDC) | payer OTHER ==
[2023-02-02] VITALS (9 sets, daily range): BP systolic 94–123; BP diastolic 73–79
[2023-02-02] MEDS ORDERED: LACTATED RINGERS 1,000 ML IV PRN (10:45)
[2023-02-02] MEDS ORDERED: ceFAZolin INJECTION 2,000 MG in NS (IVPB) 50 ML IV ONE (10:45)
--- NOTE | 2023-02-02 11:15 | Progress Note-Pre Operative ---
Pre-Operative Progress Note Date H&P Reviewed: Feb 02, 2023 Time H&P Reviewed: 11:15 History & Physical: H&P Reviewed, Patient Examed, No changes noted Pre-Operative Diagnosis: right buttock hematoma JOSE FRIAS DO Feb 02, 2023 11:15
[2023-02-02] MEDS ORDERED: BUP/EPI 0.5% 1:200,000 (SENSORCAINE) 30 ML VIAL ONE (11:28)
[2023-02-02] MEDS ORDERED: fentaNYL INJ 100 MCG/2 ML AMP ONE (11:29)
[2023-02-02] MEDS ORDERED: MIDAZOLAM 2 MG/2 ML (VERSED) VIAL ONE (11:29)
[2023-02-02] MEDS ORDERED: LIDOCAINE PF 2% 5 ML (XYLOCAINE) VIAL ONE (12:05)
[2023-02-02] MEDS ORDERED: proPOfol 200 MG/20 ML (DIPRIVAN) VIAL IV ONE (12:05)
[2023-02-02] MEDS ORDERED: ONDANSETRON 4 MG/2 ML (SDV) Z0FRAN ONE (12:05)
[2023-02-02] MEDS ORDERED: SEVOFLURANE (ULTANE) 15 ML INHAL SOLN ONE (12:05)
--- NOTE | 2023-02-02 12:05 | Discharge Inst-Simple/Standard ---
Discharge Inst-Standard Patient Instructions/Follow Up Plan of Care/Instructions/FU: [facility] Nurse tomorrow. [facility] 2 weeks. Activity as Tolerated: No Discharge Diet: Regular Diet Other Inst to Patient Follow up Appt: Make appointment for 2 week. Instructions: No lifting greater than 10 pounds. No strenuous activity. May shower in 24 hours, no tub bath or soaking. Use incentive spirometer at home as directed. No Smoking Skin/Wound Care: Irrigate wound and pack with Iodoform gauze daily and as needed. Sterile dressing over wound. Symptoms to Report: Appetite Changes, Extremity Discoloration, Numbness/Tingling, Swelling Increased, Bleeding Excessive, Eyesight Changes, Pain Increased, Urine Color C hange, Constipation(Persistent), Fever over 101 degree F, Pain/Pressure in chest, Urinating Difficulty, Cough Up/Vomit Blood, Heart Beat Irreg/Pounding, Pain/Pressure in jaw, Vaginal Bleeding Increase, Cramps in feet or legs, Lightheadedness, Pain/Pressure in shoulder, Diarrhea(Persistent), Memory Changes Suddenly, Questions/Concerns, Weight gain consecutive days, Dizziness/Fainting, Nausea/Vomiting, Shortness of Breath, Weight gain over 2 pounds If questions or concerns contact your physician Or seek help at emergency department. JOSE FRIAS DO Feb 02, 2023 12:05
--- NOTE | 2023-02-02 12:07 | Progress Note-Post Operative ---
Post-Operative Progess Note Surgeon (s)/Flatcar Whacker (s) Surgeon JOSE FRIAS DO Flatcar Whacker: na Pre-Operative Diagnosis right buttock hematoma Post-Operative Diagnosis same Procedure & Operative Findings Date of Procedure 02/02/23 Procedure Performed/Findings incision and drainage right buttock Anesthesia Type general Estimated Blood Loss Estimated blood loss (mL): minimal Specimens/Packing Specimens Removed na JOSE FRIAS DO Feb 02, 2023 12:07
[2023-02-02] MEDS ORDERED: morphine INJ 10 MG/ML 1ML (SYR OR VIAL) IVP ONE (12:15)
[2023-02-02] MEDS ORDERED: ONDANSETRON 4 MG/2 ML (SDV) Z0FRAN IVP PRN (12:15)
--- NOTE | 2023-02-02 12:15 | Anesthesia-General Post-Op ---
General Patient Condition Mental Status/LOC: Same as Preop Cardiovascular: Satisfactory Nausea/Vomiting: Absent Respiratory: Satisfactory Pain: Controlled Complications: Absent Post Op Complications Complications None Follow Up Care/Instructions Patient Instructions None needed. Anesthesia/Patient Condition Patient Condition Patient is doing well, no complaints, stable vital signs, no apparent adverse anesthesia problems. No complications reported per nursing. ERIK KENNEDY CRNA Feb 02, 2023 12:15
--- NOTE | 2023-02-02 13:54 | OPERATIVE REPORT ---
DATE OF SERVICE: 02/02/2023 PREOPERATIVE DIAGNOSIS: Hematoma, right buttock. POSTOPERATIVE DIAGNOSIS: Hematoma, right buttock. PROCEDURE: Incision and drainage of right buttock hematoma. SURGEON: Jose Pulliam DO ANESTHESIA: General. ESTIMATED BLOOD LOSS: Minimal. COMPLICATIONS: None. INDICATIONS: The patient is a 37-year-old female who fell off a skateboard and developed a large right buttock hematoma causing significant discomfort. She tried conservative management and wants to proceed with surgical management. She understands risks and benefits and wishes to proceed. Consent was signed in chart. DESCRIPTION OF PROCEDURE: The patient was taken to the operating suite. She was prepped and draped in sterile fashion in left lateral recumbent position. Timeout was performed. Local anesthetic was infiltrated on the inferior lateral aspect of the hematoma. A 3 cm incision was made through skin and subcutaneous tissue into the hematoma, which was then evacuated a lot of thin bloody appearing fluid. The wound was then irrigated with 3 liters of saline and the wound was then packed with 1-inch iodoform gauze and sterile bandage was applied. The patient tolerated the procedure well without any complications, taken to recovery room in stable condition. Job ID: [id number] DocumentID: [id number] Dictated Date: 02/02/2023 12:09:50 [employer] Date: 02/02/2023 13:53:00 Dictated By: JOSE PULLIAM DO
[2023-02-02] MEDS ORDERED: ACETAMINOPHEN 325 MG TABLET ONE (13:57)
[2023-02-02] MEDS ORDERED: IBUPROFEN TABLET 200 MG TAB PO ONE (13:57)
[2023-02-02] MEDS ORDERED: ACETAMINOPHEN 500 MG TAB (TYLENOL) PO NR (14:00)
[2023-02-02] MEDS ORDERED: IBUPROFEN TABLET 200 MG TAB PO NR (14:00)
[2023-02-02] MEDS ORDERED: IBUPROFEN 600 MG (MOTRIN) TAB PO ONE (14:00)
== END 2023-02-02 14:22 | disposition home or self-care (01) ==
LOC: SDC 10:19
PROVIDERS: ATTEND Surgery
DX: S30.0XXA Contusion of lower back and pelvis, initial encounter (principal); F17.210 Nicotine dependence, cigarettes, uncomplicated; W19.XXXA Unspecified fall, initial encounter
CPT/HCPCS: 84703; 87081